=== PATIENT | male | born 1975 | race African-American/Black ===

== ENCOUNTER 2016-11-24 21:50 | Emergency (ER) | payer SELFPAY ==
[~2016-11-24] VITALS: Ht 182.9 cm; Wt 130.0 kg
[~2016-11-24 21:50] MED LIST: CYCL-36 PO; DICL50 PO; IBUP800T23 PO; METF500 PO; PRED20 PO
[2016-11-24 21:54] VITALS: BP 118/75; PULSE 74; RESP 15; TEMP 98.1; O2SAT 94
[2016-11-25 01:35] VITALS: BP 131/72; PULSE 66; RESP 18; O2SAT 95
[2016-11-25] MEDS ORDERED: METF500T PO ×2 (01:38→04:32)
[2016-11-25] MEDS ORDERED: SODIUM CHLORIDE 0.9% FLUSH 5 ML FLUSH IVF PRN (02:00)
[2016-11-25] MEDS ORDERED: SODIUM CHLOR 0.9% 1000 ML INJ 1,000 ML IV ONE (02:00)
[2016-11-25] MEDS ORDERED: INSULIN HUMAN REGULAR 1,000 UNITS/10 ML VIAL SQ ONE (02:00)
[2016-11-25 02:19] LABS: BLOOD, URINE NEG (NEG); GLUCOSE,URINE 1000 mg/dL (NEG); KETONE, URINE NEG (NEG); NITRITE,URINE NEG (NEG); PH, URINE 5.5 (5.0-8.5); SQUAMOUS EPITHELIAL CELL URINE <1 /hpf (0-5); URINE COLOR YELLOW (YELLW/STRAW)
[2016-11-25 02:21] LABS: COMMENT (UR) CULT NOT INDICATED; CULTURE IF INDICATED CULT NOT INDICATED
[2016-11-25 02:22] LABS: AUTOMATED NEUTROPHIL # 5.8 TH/MM3 (1.8-7.7); BASOPHIL # 0.2 TH/MM3 (0-0.2); BASOPHIL % 1.5 % (0.0-2.0); EOSINOPHIL # 0.3 TH/MM3 (0-0.4); EOSINOPHIL % 2.9 % (0.0-4.0); HEMATOCRIT 33.1 % (39.0-51.0); HEMO FLAGS DIFF FINAL; LYMPH % 37.1 % (9.0-44.0); MEAN CELL VOLUME 75.4 FL (80.0-100.0); MEAN CORPUSCULAR HEMOGLOBIN 25.5 PG (27.0-34.0); MEAN CORPUSCULAR HGB CONC 33.8 % (32.0-36.0); MONO % 5.3 % (0.0-8.0); NEUT % 53.2 % (16.0-70.0); PLATELET COUNT 355 TH/MM3 (150-450); RED BLOOD COUNT 4.39 MIL/MM3 (4.50-5.90); RED CELL DISTRIBUTION WIDTH 16.7 % (11.6-17.2); WHITE BLOOD COUNT 10.8 TH/MM3 (4.0-11.0)
--- NOTE | 2016-11-25 02:24 | RADRPT ---
EXAM DATE/TIME: 11/25/2016 02:20 [facility] COMPARISON: CHEST SINGLE AP, May 29, 2015, 8:33. INDICATIONS : Weakness. Dizzy. MEDICAL HISTORY : None. SURGICAL HISTORY : None. ENCOUNTER: Initial ACUITY: 1 day PAIN SCORE: 6/10 LOCATION: Bilateral chest FINDINGS: A single view of the chest demonstrates the lungs to be symmetrically aerated without evidence of mas s, infiltrate or effusion. The cardiomediastinal contours are unremarkable. Osseous structures are intact. CONCLUSION: No acute disease. No significant change has occurred. Joe Eckert MD on November 25, 2016 at 2:22 Board Certified Radiologist. This report was verified electronically.
[2016-11-25 02:46] VITALS: BP_SYST 135; BP_SYST 138; BP_SYST 154; BP_DIAS 80; BP_DIAS 83; BP_DIAS 90; RESP 14; RESP 18
[2016-11-25 02:48] LABS: ANION GAP 8 MEQ/L (5-15); BICARBONATE 28.2 MEQ/L (21.0-32.0); BLOOD UREA NITROGEN 11 MG/DL (7-18); CHLORIDE 103 MEQ/L (98-107); GLOMERULAR FILTRATION RATE 103 ML/MIN (>89); MAGNESIUM 1.9 MG/DL (1.5-2.5); POTASSIUM 3.8 MEQ/L (3.5-5.1); SODIUM (NA) 139 MEQ/L (136-145)
--- NOTE | 2016-11-25 02:48 | PD ---
HPI Chief Complaint: Dizziness Time Seen by Provider: 04:30 Travel History International Travel<30 days: No Contact w/Intl Traveler<30days: No Traveled to known affect area: No History of Present Illness HPI 41-year-old male presents to the emergency department by private transportation in the care of his family for evaluation of 20 minutes of dizziness this evening while he was driving to work. Patient did not have any sudden onset worst of her thunderclap headache, no change in mentation, no visual disturbance , no loss of vision or double vision no blurred vision, no nausea no vomiting, no change in his speech no upper or lower 70 numbness tingling or weakness. Patient did not feel well enough to go to work and presents now for further evaluation. Patient states she was diagnosed as a type II diabetic 2 years ago placed on metformin and ran out of his prescription a proxy 6 months ago due to insurance issues. Patient has done fairly well and has not been monitor blood sugars closely until this evening. Patient states that he's had no recent febrile illness or respiratory illness. No chest pain no palpitations no referred neck jaw back shoulder arm pain no abdominal pain no shortness of breath no sweats no vomiting and no nausea or vomiting. PFSH Past Medical History Narrative Medical Diabetes, heart murmur, appendectomy, cholecystectomy, no tobacco use, nursing notes reviewed Cardiovascular Problems: Yes ("ONE DR SAID I HAD A HEART MURMUR:) Diabetes: Yes Patient Takes Glucophage: No Diminished Hearing: No ?: Not Past Surgical History Appendectomy: Yes Cholecystectomy: Yes Social History Alcohol Use: No Tobacco Use: No Substance Use: No Allergies-Medications (Allergen,Severity, Reaction): Coded Allergies: Penicillin (Verified Allergy, Severe, Hives, 11/24/16) Reported Meds & Prescriptions Reported Meds & Active Scripts Active Metformin (Metformin HCl) 500 Mg Tab 500 Mg PO BIDPC With meals Reported Metformin (Metformin HCl) 500 Mg Tab 500 Mg PO BID With a meal Review of Systems Except as stated in HPI: all other systems reviewed are Neg General / Constitutional: No: Fever Eyes: No: Diploplia, Photophobia, Visual changes HENT: Positive: Vertigo, Lightheadedness, No: Headaches, Neck Pain Cardiovascular: No: Chest Pain or Discomfort, Palpitations, Diaphoresis, Syncope Respiratory: No: Shortness of Breath, Wheezing Gastrointestinal: No: Nausea, Vomiting, Abdominal Pain Genitourinary: No: Frequency, Dysuria, Flank Pain Musculoskeletal: No: Myalgias Skin: No Rash Neurologic: Positive: Weakness, Dizziness, No: Syncope, Focal Abnormalities, Coordination Problem, Ataxia, Headache, Change in Mentation, Slurred Speech, Paresthesia Psychiatric: No: Anxiety Endocrine: No: Heat Intolerance Hematologic/Lymphatic: No: Easy Bruising Physical Exam Narrative GENERAL: Well-developed well-nourished male in no acute distress no respiratory distress; GCS 15 SKIN: Warm and dry. HEAD: Atraumatic. Normocephalic. EYES: Pupils equal and round. No scleral icterus. No injection or drainage. ENT: No nasal bleeding or discharge. Mucous membranes pink and moist. NECK: Trachea midline. No JVD. Supple no meningismus no nuchal rigidity CARDIOVASCULAR: Regular rate and rhythm. RESPIRATORY: No accessory muscle use. Clear to auscultation. Breath sounds equal bilaterally. GASTROINTESTINAL: Abdomen soft, non-tender, nondistended. Hepatic and splenic margins not palpable. MUSCULOSKELETAL: Extremities without clubbing, cyanosis, or edema. No obvious deformities. NEUROLOGICAL: Awake and alert. No obvious cranial nerve deficits. Motor grossly within normal limits. Five out of 5 muscle strength in the arms and legs. No pronator drift, deep tendon reflexes 2+ and symmetric bilateral upper extremities and lower extremities sensory exam intact. Normal speech. PSYCHIATRIC: Appropriate mood and affect; insight and judgment normal. Data Data Last Documented VS Vital Signs Date Time Temp Pulse Resp B/P Pulse Ox O2 Delivery O2 Flow Rate FiO2 11/25/16 05:31 73 14 117/74 98 11/25/16 03:10 Room Air 11/24/16 21:54 98.1 Orders Electrocardiogram (11/25/16 01:49) Basic Metabolic Panel (Bmp) (11/25/16 01:49) Complete Blood Count With Diff (11/25/16 01:49) Magnesium (Mg) (11/25/16 01:49) Troponin I (11/25/16 01:49) Urinalysis - C+S If Indicated (11/25/16 01:49) Chest, Single Ap (11/25/16 01:49) Ct Brain W/O Iv Contrast(Rout) (11/25/16 01:49) Ecg Monitoring (11/25/16 01:49) Iv Access Insert/Monitor (11/25/16 01:49) Oximetry (11/25/16 01:49) Sodium Chloride 0.9% Flush (Ns Flush) (11/25/16 02:00) Orthostatic Vital Signs (11/25/16 01:49) Sodium Chlor 0.9% 1000 Ml Inj (Ns 1000 M (11/25/16 02:00) Insulin Human Regular Inj (Novolin R Inj (11/25/16 02:00) Labs Laboratory Tests Test 11/25/16 11/25/16 01:45 02:06 White Blood Count 10.8 TH/MM3 Red Blood Count 4.39 MIL/MM3 Hemoglobin 11.2 GM/DL Hematocrit 33.1 % Mean Corpuscular Volume 75.4 FL Mean Corpuscular Hemoglobin 25.5 PG Mean Corpuscular Hemoglobin 33.8 % Concent Red Cell Distribution Width 16.7 % Platelet Count 355 TH/MM3 Mean Platelet Volume 8.8 FL Neutrophils (%) (Auto) 53.2 % Lymphocytes (%) (Auto) 37.1 % Monocytes (%) (Auto) 5.3 % Eosinophils (%) (Auto) 2.9 % Basophils (%) (Auto) 1.5 % Neutrophils # (Auto) 5.8 TH/MM3 Lymphocytes # (Auto) 4.0 TH/MM3 Monocytes # (Auto) 0.6 TH/MM3 Eosinophils # (Auto) 0.3 TH/MM3 Basophils # (Auto) 0.2 TH/MM3 CBC Comment DIFF FINAL Differential Comment Sodium Level 139 MEQ/L Potassium Level 3.8 MEQ/L Chloride Level 103 MEQ/L Carbon Dioxide Level 28.2 MEQ/L Anion Gap 8 MEQ/L Blood Urea Nitrogen 11 MG/DL Creatinine 0.97 MG/DL Estimat Glomerular Filtration 103 ML/MIN Rate Random Glucose 277 MG/DL Calcium Level 8.6 MG/DL Magnesium Level 1.9 MG/DL Troponin I LESS THAN 0.02 NG/ML Urine Color YELLOW Urine Turbidity CLEAR Urine pH 5.5 Urine Specific [place] 1.011 Urine Protein NEG mg/dL Urine Glucose (UA) 1000 mg/dL Urine Ketones NEG mg/dL Urine Occult Blood NEG Urine Nitrite NEG Urine Bilirubin NEG Urine Urobilinogen LESS THAN 2.0 MG/DL Urine Leukocyte Esterase NEG Urine WBC 2 /hpf Urine Squamous Epithelial <1 /hpf Cells Microscopic Urinalysis Comment CULT NOT INDICATED MDM Medical Decision Making Medical Screen Exam Complete: Yes Emergency Medical Condition: Yes Medical Record Reviewed: Yes Interpretation(s) EKG: Sinus rhythm rate [address] elevation or injury pattern or ectopy noted Urinalysis: Glucosuria otherwise values in normal range next line troponin I less than 0.02, not elevated Vital Signs Date Time Temp Pulse Resp B/P Pulse Ox O2 Delivery O2 Flow Rate FiO2 11/25/16 02:46 70 14 135/80 70 14 138/83 80 18 154/90 11/25/16 01:35 66 18 131/72 95 Room Air 11/24/16 21:54 98.1 74 15 118/75 94 Room Air Last Impressions Head CT 11/25/16148 Signed Impressions: Service Date/Time: November 02:58 - CONCLUSION: Normal examination for a patient of this age. No significant change has occurred. Joe Eckert MD Chest X-Ray 11/25/16148 Signed Impressions: Service Date/Time: November 02:20 - CONCLUSION: No acute disease. No significant change has occurred. Joe Eckert MD CBC & BMP Diagram 11/25/16 01:45 Differential Diagnosis Dizziness, vertigo, TIA, CVA, uncontrolled diabetes, hypertensive urgency, hypertensive crisis, ACS, myocardial infarction, electronic disturbance, dehydration, anemia Narrative Course Patient placed on director cardiac, IV access obtained, specimens collected and sent for resulting, patient identified to have hyperglycemia by random glucose and patient was administered 1 L normal saline along with subcutaneous insulin Patient show any evidence of insulin decreasing width measures performed and patient is stable for outpatient management. Patient states she has not been on his metformin for 6 months. Patient needs a refill of his metformin prescription Patient is stable for outpatient management and follow-up with his primary care provider or through the [facility] Diagnosis Primary Impression: Dizziness Additional Impressions: Hyperglycemia Medication refill DM (diabetes mellitus) Referrals: [facility] call for appointment Primary Care Physician call for appointment Patient Instructions: General Instructions Med/Other Pt SpecificInfo: Prescription(s) given Scripts Metformin 500 Mg [id number] Mg PO BIDPC #60 TAB Ref 0 With meals Prov:Melissa Nance MD 11/25/16 Disposition: DISCHARGE HOME Condition: Stable Melissa Nance MD Nov 25, 2016 02:48 Melissa Nance MD Nov 25, 2016 02:48
--- NOTE | 2016-11-25 03:09 | RADRPT ---
EXAM DATE/TIME: 11/25/2016 02:58 [facility] COMPARISON: No previous studies available for comparison. INDICATIONS : Dizziness with blurred vision. RADIATION DOSE: 42.67 CTDIvol (mGy) MEDICAL HISTORY : Diabetes mellitus type 2. SURGICAL HISTORY : Appendectomy. Cholecystectomy. ENCOUNTER: Initial ACUITY: 1 day PAIN SCALE: 0/10 LOCATION: cranial TECHNIQUE: Multiple contiguous axial images were obtained of the head. Using automated exposure control and adj ustment of the mA and/or kV according to patient size, radiation dose was kept as low as reasonably a chievable to obtain optimal diagnostic quality images. FINDINGS: CEREBRUM: The ventricles are normal for age. No evidence of midline shift, mass lesion, hemorrhage or acute in farction. No extra-axial fluid collections are seen. POSTERIOR FOSSA: The cerebellum and brainstem are intact. The 4th ventricle is midline. The cerebellopontine angle i s unremarkable. EXTRACRANIAL: The visualized portion of the orbits is intact. SKULL: The calvaria is intact. No evidence of skull fracture. CONCLUSION: Normal examination for a patient of this age. No significant change has occurred. Joe Eckert MD on November 25, 2016 at 3:06 Board Certified Radiologist. This report was verified electronically.
[2016-11-25 03:10] VITALS: BP 154/90; PULSE 67; RESP 14; O2SAT 98
[2016-11-25 05:31] VITALS: BP 117/74
--- NOTE | 2016-11-25 23:44 | EKG ---
Date Performed: 11/25/2016 Time Performed: 02:39:34 PTAGE: 41 years EKG: Sinus rhythm NORMAL ECG PREVIOUS TRACING : 05/29/2015 08.04 Compared to prior tracing no significant change DOCTOR: Juanito Lawrence Interpretating Date/Time 11/25/2016 23:43:21
== END 2016-11-25 05:40 | disposition home or self-care (01) ==
LOC: NEPC 21:50
DX: R42 Dizziness and giddiness (principal); E11.65 Type 2 diabetes mellitus with hyperglycemia; H53.8 Other visual disturbances
CPT/HCPCS: 70450; 71010; 80048; 81001; 83735; 84484; 85025; 93005; 96360; 96361; 99284; J1815; J7030

== ENCOUNTER 2016-12-26 11:00 | Emergency (ER) | payer SELFPAY ==
[~2016-12-26] VITALS: Ht 182.9 cm; Wt 131.5 kg
[~2016-12-26 11:00] MED LIST changes: -CYCL-36 PO; -DICL50 PO; -IBUP800T23 PO; -METF500 PO; +METF500T PO; -PRED20 PO
[2016-12-26 11:01] VITALS: BP 145/90; PULSE 81; RESP 17; TEMP 98.3; O2SAT 98
[2016-12-26 11:26] VITALS: TEMP 98.2
[2016-12-26] MEDS ORDERED: ZITHTAB PO (11:38)
--- NOTE | 2016-12-26 11:38 | PD ---
HPI Chief Complaint: Cold / Flu Symptoms Time Seen by Provider: 11:24 Travel History International Travel<30 days: No Contact w/Intl Traveler<30days: No Traveled to known affect area: No History of Present Illness HPI 41-year-old male with history of diabetes on metformin, here for evaluation of cough. The patient reports having a cough for a 1.5 weeks. Cough is productive of yellowish sputum. No hemoptysis. No chest pain or dyspnea. He has had intermittent fevers and chills. He also complains of sore throat as well as a frontal headache that occurs when he coughs. No headache at rest. No visual disturbances. No neurologic complaints. PFSH Past Medical History Cardiovascular Problems: Yes ("ONE DR SAID I HAD A HEART MURMUR:) Diabetes: Yes Patient Takes Glucophage: Yes Diminished Hearing: No Past Surgical History Appendectomy: Yes Cholecystectomy: Yes Social History Alcohol Use: No Tobacco Use: No Substance Use: No Allergies-Medications (Allergen,Severity, Reaction): Coded Allergies: Penicillin (Verified Allergy, Severe, Hives, 12/26/16) Reported Meds & Prescriptions Reported Meds & Active Scripts Active Reported Metformin (Metformin HCl) 500 Mg Tab 500 Mg PO BID With a meal Review of Systems Except as stated in HPI: all other systems reviewed are Neg Physical Exam Narrative GENERAL: Well-developed, well-nourished, comfortable, no acute distress. SKIN: Focused skin assessment warm/dry. No rash. HEAD: Atraumatic. Normocephalic. EYES: Pupils equal and round. No scleral icterus. No injection or drainage. ENT: No nasal bleeding or discharge. Mucous membranes pink and moist. Normal pharynx. No drooling or stridor. NECK: Trachea midline. No JVD. No nuchal rigidity. CARDIOVASCULAR: Regular rate and rhythm. No murmur appreciated. RESPIRATORY: No accessory muscle use. Clear to auscultation. Breath sounds equal bilaterally. GASTROINTESTINAL: Abdomen soft, non-tender, nondistended. MUSCULOSKELETAL: No obvious deformities. No clubbing. No cyanosis. No edema. NEUROLOGICAL: Awake and alert. No obvious cranial nerve deficits. Motor grossly within normal limits. Normal speech. PSYCHIATRIC: Appropriate mood and affect; insight and judgment normal. Data Data Last Documented VS Vital Signs Date Time Temp Pulse Resp B/P Pulse Ox O2 Delivery O2 Flow Rate FiO2 12/26/16 11:27 18 97 Room Air 12/26/16 11:26 98.2 12/26/16 11:01 81 145/90 [facility] Medical Decision Making Medical Screen Exam Complete: Yes Emergency Medical Condition: Yes Differential Diagnosis Bronchitis, pneumonia, URI, viral illness Narrative Course Vital signs show heart rate 81, blood pressure 145/90, pulse ox 98% on room air , oral temp of 98.3F. Patient is overall very well-appearing. His lung sounds are clear. He reports cough productive of yellowish sputum that has been going on for last 1.5 weeks. His pharynx is normal. Airways patent. No nuchal rigidity on exam. I believe he is suffering from bronchitis. Plan is to discharge him home with a prescription for a Z-Bib. PMD follow-up this week. He was informed on when to return to the emergency department. He verbalizes understanding and agreement with plan. Diagnosis Primary Impression: Bronchitis Referrals: Primary Care Physician 3 days Additional Instructions: Follow-up with a primary care physician this week. Stay hydrated with plenty of fluids. Take antibiotic as prescribed. Return to the emergency department for worsening symptoms or any other concerns. Scripts Azithromycin (Zithromax Z-Bib)250 Mg Gycr325 Mg PO DIRECTED #1 DSPK Ref 0 500 MG (2 tabs) day 1, then 1 tab days 2-5. Prov:Lisandro Torrez MD 12/26/16 Disposition: 01 DISCHARGE HOME Condition: Stable Lisandro Torrez MD Dec 26, 2016 11:38
== END 2016-12-26 12:44 | disposition home or self-care (01) ==
LOC: NEPA 11:00
DX: J40 Bronchitis, not specified as acute or chronic (principal)
CPT/HCPCS: 99283

== ENCOUNTER 2017-03-28 07:25 | Emergency (ER) | payer SELFPAY ==
[~2017-03-28] VITALS: Ht 182.9 cm; Wt 130.0 kg
[~2017-03-28 07:25] MED LIST changes: +ZITHTAB PO
[2017-03-28 07:26] VITALS: BP 121/77; PULSE 102; RESP 15; TEMP 99.5; O2SAT 98
[2017-03-28] MEDS ORDERED: SODIUM CHLOR 0.9% 1000 ML INJ 1,000 ML IV SCH (07:43)
[2017-03-28] MEDS ORDERED: SODIUM CHLORIDE 0.9% FLUSH 10 ML FLUSH IV FLUSH PRN (07:45)
[2017-03-28] MEDS ORDERED: ACETAMINOPHEN 325 MG TAB PO ONE (07:45)
[2017-03-28] MEDS ORDERED: ONDANSETRON HCL 4 MG/2 ML VIAL IVP ONE (07:45)
--- NOTE | 2017-03-28 07:49 | PD ---
HPI Chief Complaint: GI Complaint Time Seen by Provider: 07:36 Travel History International Travel<30 days: No Contact w/Intl Traveler<30days: No Traveled to known affect area: No History of Present Illness HPI The patient is a 41-year-old [place] male who presents emergency department for 2 days of cough and cold symptoms. The patient states he has facial/sinus congestion, postnasal drip, sore throat, dry nonproductive cough, nausea, diarrhea, and intermittent abdominal cramping. The patient does have a history of type 2 diabetes, takes metformin on a daily basis for approximately one year, cannot recall the last time he had his kidney function monitored. He does complain of postnasal drip and a dry nonproductive cough, but denies any chest pain or shortness of breath. He does know some mild nausea, but denies any vomiting. He does note a few episodes of diarrhea which were loose, watery , but improved with Imodium. 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 He notes subjective fevers with intermittent chills and sweats. Symptoms are moderate, possibly exacerbated by an underlying illness, and there are no current alleviating factors. PFSH Past Medical History Cardiovascular Problems: Yes ("ONE DR SAID I HAD A HEART MURMUR:) Diabetes: Yes Patient Takes Glucophage: No Diminished Hearing: No Past Surgical History Appendectomy: Yes Cholecystectomy: Yes Social History Alcohol Use: No Tobacco Use: No Substance Use: No Allergies-Medications (Allergen,Severity, Reaction): Coded Allergies: Penicillin (Verified Allergy, Severe, Hives, 12/26/16) Reported Meds & Prescriptions Reported Meds & Active Scripts Active Reported Metformin (Metformin HCl) 500 Mg Tab 500 Mg PO BID With a meal Review of Systems Except as stated in HPI: all other systems reviewed are Neg General / Constitutional: Positive: Fever, Chills HENT: Positive: Sore Throat, Congestion Cardiovascular: No: Chest Pain or Discomfort Respiratory: Positive: Cough, No: Shortness of Breath Gastrointestinal: Positive: Nausea, Diarrhea, Abdominal Pain (cramping), No: Vomiting Genitourinary: No: Dysuria Musculoskeletal: Positive: Myalgias Physical Exam Narrative GENERAL: Awake, alert, pleasant 41-year-old male who appears his stated age and is in no acute respiratory distress. SKIN: Focused skin assessment warm/dry. HEAD: Atraumatic. Normocephalic. EYES: Pupils equal and round. No scleral icterus. No injection or drainage. ENT: No nasal bleeding or discharge. Cobblestoning noted in posterior oropharynx, no exudate noted. NECK: Trachea midline. No JVD. CARDIOVASCULAR: Regular, tachycardic with a heart rate of 100. RESPIRATORY: No accessory muscle use. Clear to auscultation. Breath sounds equal bilaterally. GASTROINTESTINAL: Abdomen soft, non-tender, nondistended. No rebound tenderness. MUSCULOSKELETAL: No obvious deformities. No clubbing. No cyanosis. No edema. NEUROLOGICAL: Awake and alert. No obvious cranial nerve deficits. Motor grossly within normal limits. Normal speech. PSYCHIATRIC: Appropriate mood and affect; insight and judgment normal. Data Data Last Documented VS Vital Signs Date Time Temp Pulse Resp B/P Pulse Ox O2 Delivery O2 Flow Rate FiO2 03/28/17 08:45 98 03/28/17 07:26 99.5 102 15 121/77 Orders Complete Blood Count With Diff (03/28/17 07:43) Comprehensive Metabolic Panel (03/28/17 07:43) Lipase (03/28/17 07:43) Iv Access Insert/Monitor (03/28/17 07:43) Ecg Monitoring (03/28/17 07:43) Oximetry (03/28/17 07:43) Ondansetron Inj (Zofran Inj) (03/28/17 07:45) Sodium Chlor 0.9% 1000 Ml Inj (Ns 1000 M (03/28/17 07:43) Sodium Chloride 0.9% Flush (Ns Flush) (03/28/17 07:45) Acetaminophen (Tylenol) (03/28/17 07:45) Labs Laboratory Tests Test 03/28/17 07:50 White Blood Count 14.9 TH/MM3 Red Blood Count 4.32 MIL/MM3 Hemoglobin 10.5 GM/DL Hematocrit 32.1 % Mean Corpuscular Volume 74.3 FL Mean Corpuscular Hemoglobin 24.4 PG Mean Corpuscular Hemoglobin 32.8 % Concent Red Cell Distribution Width 17.3 % Platelet Count 340 TH/MM3 Mean Platelet Volume 8.4 FL Neutrophils (%) (Auto) 70.3 % Lymphocytes (%) (Auto) 17.7 % Monocytes (%) (Auto) 8.1 % Eosinophils (%) (Auto) 3.1 % Basophils (%) (Auto) 0.8 % Neutrophils # (Auto) 10.5 TH/MM3 Lymphocytes # (Auto) 2.6 TH/MM3 Monocytes # (Auto) 1.2 TH/MM3 Eosinophils # (Auto) 0.5 TH/MM3 Basophils # (Auto) 0.1 TH/MM3 CBC Comment AUTO DIFF Differential Total Cells 100 Counted Neutrophils % (Manual) 72 % Lymphocytes % 16 % Monocytes % 9 % Eosinophils % 3 % Neutrophils # (Manual) 10.7 TH/MM3 Nucleated Red Blood Cells 1 /100 WBC Differential Comment FINAL DIFF MANUAL Platelet Estimate NORMAL Platelet Morphology Comment NORMAL Target Cells 3+ Ovalocytes 1+ Sodium Level 139 MEQ/L Potassium Level 3.8 MEQ/L Chloride Level 107 MEQ/L Carbon Dioxide Level 22.9 MEQ/L Anion Gap 9 MEQ/L Blood Urea Nitrogen 10 MG/DL Creatinine 1.09 MG/DL Estimat Glomerular Filtration 90 ML/MIN Rate Random Glucose 127 MG/DL Calcium Level 8.4 MG/DL Total Bilirubin 1.7 MG/DL Aspartate Amino Transf 27 U/L (AST/SGOT) Alanine Aminotransferase 20 U/L (ALT/SGPT) Alkaline Phosphatase 56 U/L Total Protein 7.7 GM/DL Albumin 3.6 GM/DL Lipase 125 U/L MDM Medical Decision Making Medical Screen Exam Complete: Yes Emergency Medical Condition: Yes Medical Record Reviewed: Yes Interpretation(s) Laboratory Tests Test 03/28/17 07:50 White Blood Count 14.9 TH/MM3 Red Blood Count 4.32 MIL/MM3 Hemoglobin 10.5 GM/DL Hematocrit 32.1 % Mean Corpuscular Volume 74.3 FL Mean Corpuscular Hemoglobin 24.4 PG Mean Corpuscular Hemoglobin 32.8 % Concent Red Cell Distribution Width 17.3 % Platelet Count 340 TH/MM3 Mean Platelet Volume 8.4 FL Neutrophils (%) (Auto) 70.3 % Lymphocytes (%) (Auto) 17.7 % Monocytes (%) (Auto) 8.1 % Eosinophils (%) (Auto) 3.1 % Basophils (%) (Auto) 0.8 % Neutrophils # (Auto) 10.5 TH/MM3 Lymphocytes # (Auto) 2.6 TH/MM3 Monocytes # (Auto) 1.2 TH/MM3 Eosinophils # (Auto) 0.5 TH/MM3 Basophils # (Auto) 0.1 TH/MM3 CBC Comment AUTO DIFF Differential Total Cells 100 Counted Neutrophils % (Manual) 72 % Lymphocytes % 16 % Monocytes % 9 % Eosinophils % 3 % Neutrophils # (Manual) 10.7 TH/MM3 Nucleated Red Blood Cells 1 /100 WBC Differential Comment FINAL DIFF MANUAL Platelet Estimate NORMAL Platelet Morphology Comment NORMAL Target Cells 3+ Ovalocytes 1+ Sodium Level 139 MEQ/L Potassium Level 3.8 MEQ/L Chloride Level 107 MEQ/L Carbon Dioxide Level 22.9 MEQ/L Anion Gap 9 MEQ/L Blood Urea Nitrogen 10 MG/DL Creatinine 1.09 MG/DL Estimat Glomerular Filtration 90 ML/MIN Rate Random Glucose 127 MG/DL Calcium Level 8.4 MG/DL Total Bilirubin 1.7 MG/DL Aspartate Amino Transf 27 U/L (AST/SGOT) Alanine Aminotransferase 20 U/L (ALT/SGPT) Alkaline Phosphatase 56 U/L Total Protein 7.7 GM/DL Albumin 3.6 GM/DL Lipase 125 U/L Differential Diagnosis Differential diagnosis includes viral syndrome, URI, influenza, gastroenteritis , dehydration, acute kidney injury, electrolyte abnormality, sinusitis, pharyngitis, pneumonia. Narrative Course IV was established, labs are drawn and sent, and the patient was placed on cardiac telemetry monitoring and continuous pulse oximetry monitoring. The patient was administered 1 L of IV fluids and Zofran 4 mg intravenously. The patient appears to have viral syndrome/URI, is advised symptomatic treatment with [id number] cough and cold medications as needed, follow-up with his primary physician. Return if symptoms worsen or progress. The patient's white count is mildly elevated with an elevation of monocytes, most likely viral in origin. The patient will be discharged home on Zofran, will be provided a copy of his labs at discharge. He is advised to follow-up with a primary physician. Diagnosis Primary Impression: Viral syndrome Patient Instructions: General Instructions Additional Instructions: Please provide a patient a copy of his labs at discharge. Work excuse for 3 days. [id number] cough and cold medicines as needed. Follow-up with your primary physician. Return if symptoms worsen or progress. Med/Other Pt SpecificInfo: Prescription(s) given Scripts Ondansetron Odt (Zofran Odt)4 Mg Tab4 Mg SL Q6HR PRN (Nausea/Vomiting) #7 TAB Ref 0 Prov:Dillan Ford MD 03/28/17 Disposition: 01 DISCHARGE HOME Condition: Stable Dillan Ford MD Mar 28, 2017 07:49
[2017-03-28 08:08] LABS: AUTOMATED NEUTROPHIL # 10.5 TH/MM3 (1.8-7.7); BASOPHIL # 0.1 TH/MM3 (0-0.2); BASOPHIL % 0.8 % (0.0-2.0); EOSINOPHIL # 0.5 TH/MM3 (0-0.4); EOSINOPHIL % 3.1 % (0.0-4.0); HEMATOCRIT 32.1 % (39.0-51.0); LYMPH % 17.7 % (9.0-44.0); LYMPHOCYTE # 2.6 TH/MM3 (1.0-4.8); MEAN CELL VOLUME 74.3 FL (80.0-100.0); MEAN CORPUSCULAR HEMOGLOBIN 24.4 PG (27.0-34.0); MEAN CORPUSCULAR HGB CONC 32.8 % (32.0-36.0); MONO % 8.1 % (0.0-8.0); NEUT % 70.3 % (16.0-70.0); PLATELET COUNT 340 TH/MM3 (150-450); RED BLOOD COUNT 4.32 MIL/MM3 (4.50-5.90); RED CELL DISTRIBUTION WIDTH 17.3 % (11.6-17.2); WHITE BLOOD COUNT 14.9 TH/MM3 (4.0-11.0)
[2017-03-28 08:09] LABS: HEMO FLAGS AUTO DIFF
[2017-03-28 08:30] LABS: ALKALINE PHOSPHATASE 56 U/L (45-117); TOTAL BILIRUBIN ADULT 1.7 MG/DL (0.2-1.0)
[2017-03-28 08:34] LABS: ALT (GPT) 20 U/L (12-78); ANION GAP 9 MEQ/L (5-15); AST (GOT) 27 U/L (15-37); BICARBONATE 22.9 MEQ/L (21.0-32.0); BLOOD UREA NITROGEN 10 MG/DL (7-18); CHLORIDE 107 MEQ/L (98-107); GLOMERULAR FILTRATION RATE 90 ML/MIN (>89); POTASSIUM 3.8 MEQ/L (3.5-5.1); SODIUM (NA) 139 MEQ/L (136-145)
[2017-03-28 08:45] VITALS: O2SAT 98
[2017-03-28 08:48] LABS: CORRECTED NUCLEATED RBC 1 /100 WBC (0-0); EOSINOPHILS 3 % (0-4); NEUTROPHIL # MANUAL DIFF 10.7 TH/MM3 (1.8-7.7); POLYS (SEG NEUTROPHILS) 72 % (16-70); WBC DIFF SAMPLE 100
[2017-03-28 08:49] LABS: OVALOCYTES 1+ (NORMAL); PLATELET ESTIMATE SMEAR NORMAL (NORMAL); PLATELET MORPHOLOGY NORMAL (NORMAL); SCAN/DIFF FINAL DIFF MANUAL; TARGET CELLS 3+ (NORMAL)
[2017-03-28] MEDS ORDERED: ZOFR4TAB3 SL (09:20)
== END 2017-03-28 09:30 | disposition home or self-care (01) ==
LOC: NEPE 07:25
DX: B34.9 Viral infection, unspecified (principal); R05 Cough; R09.81 Nasal congestion; R09.82 Postnasal drip; R07.0 Pain in throat; R11.0 Nausea; R19.7 Diarrhea, unspecified; R10.9 Unspecified abdominal pain; D72.829 Elevated white blood cell count, unspecified; E11.9 Type 2 diabetes mellitus without complications; Z79.84 Long term (current) use of oral hypoglycemic drugs; Z86.79 Personal history of other diseases of the circulatory system
CPT/HCPCS: 80053; 83690; 85007; 85027; 96374; 96375; 99284; J2405; J7030

== ENCOUNTER 2017-04-06 21:56 | Observation (INO) | payer SELFPAY ==
[~2017-04-06] VITALS: Ht 182.9 cm; Wt 130.0 kg
[~2017-04-06 21:56] MED LIST changes: -ZITHTAB PO; +ZOFR4TAB3 SL
[2017-04-06 21:58] VITALS: BP 110/63; PULSE 83; RESP 16; TEMP 99.1; O2SAT 99
[2017-04-06 22:14] VITALS: BP_SYST 118; BP_SYST 119; BP_DIAS 71; BP_DIAS 77
[2017-04-06] MEDS ORDERED: SODIUM CHLORID 0.9% 500 ML INJ 500 ML IV ONE (22:15)
[2017-04-06] MEDS ORDERED: SODIUM CHLORIDE 0.9% FLUSH 10 ML FLUSH IVF PRN (22:15)
--- NOTE | 2017-04-06 22:24 | PD ---
HPI Chief Complaint: Chest Pain Time Seen by Provider: 22:11 Travel History International Travel<30 days: No Contact w/Intl Traveler<30days: No History of Present Illness HPI Patient is a 42-year-old male presenting to emergency for evaluation of chest pain. Chest pain started approximately 30 minutes prior to arrival, it is nonradiating. Patient states he was driving to work when the chest pain started. Patient also reports a frontal headache, dizziness. He denies any nausea, vomiting, diaphoresis, shortness of breath. He states that he was treated for sinus infection last week, he continues to have an occasional cough. Patient was given sublingual nitroglycerin 1 dose, his pain went from an 8 out of 10-6 out of 10. He refuses second nitroglycerin. EMS report. Patient has no history of heart disease, he is a type II diabetic on metformin. He has no primary care provider at this time. He does not smoke or drink, he denies any illicit drug use. PFSH Past Medical History Diabetes: Yes Patient Takes Glucophage: Yes Diminished Hearing: No Past Surgical History Appendectomy: Yes Cholecystectomy: Yes Social History Alcohol Use: No Tobacco Use: No Substance Use: No Allergies-Medications (Allergen,Severity, Reaction): Coded Allergies: Penicillin (Verified Allergy, Severe, Hives, 04/06/17) Reported Meds & Prescriptions Reported Meds & Active Scripts Active Reported Metformin (Metformin HCl) 500 Mg Tab 500 Mg PO BID With a meal Review of Systems Except as stated in HPI: all other systems reviewed are Neg General / Constitutional: No: Fever Eyes: No: Blurred Vision HENT: Positive: Headaches Cardiovascular: Positive: Chest Pain or Discomfort Respiratory: Positive: Cough, No: Shortness of Breath Gastrointestinal: No: Nausea, Vomiting, Abdominal Pain Musculoskeletal: No: Myalgias Neurologic: Positive: Dizziness Physical Exam Narrative GENERAL: Overweight, well-developed, alert gentleman. Appears uncomfortable, in no acute distress. SKIN: Warm and dry. HEAD: Atraumatic. Normocephalic. EYES: Pupils equal and round. No scleral icterus. No injection or drainage. Tenderness to palpation over ethmoid and frontal sinuses. ENT: No nasal bleeding or discharge. Mucous membranes pink and moist. NECK: Trachea midline. No JVD. CARDIOVASCULAR: Regular rate and rhythm. RESPIRATORY: No accessory muscle use. Clear to auscultation. Breath sounds equal bilaterally. GASTROINTESTINAL: Abdomen soft, non-tender, nondistended. Hepatic and splenic margins not palpable. MUSCULOSKELETAL: Extremities without clubbing, cyanosis, or edema. No obvious deformities. NEUROLOGICAL: Awake and alert. No obvious cranial nerve deficits. Motor grossly within normal limits. Five out of 5 muscle strength in the arms and legs. Normal speech. PSYCHIATRIC: Appropriate mood and affect; insight and judgment normal. Data Data Last Documented VS Vital Signs Date Time Temp Pulse Resp B/P Pulse Ox O2 Delivery O2 Flow Rate FiO2 04/06/17 22:14 119/77 118/71 04/06/17 22:14 98 Nasal Cannula 2 04/06/17 21:58 99.1 83 16 Orders Electrocardiogram (04/06/17 22:05) Ckmb (Isoenzyme) Profile (04/06/17 22:05) Complete Blood Count With Diff (04/06/17 22:05) Comprehensive Metabolic Panel (04/06/17 22:05) Magnesium (Mg) (04/06/17 22:05) Prothrombin Time / Inr (Pt) (04/06/17 22:05) Act Partial Throm Time (Ptt) (04/06/17 22:05) Troponin I (04/06/17 22:05) Chest, Single Ap (04/06/17 22:05) Ecg Monitoring (04/06/17 22:05) Bilateral Bp Monitoring (04/06/17 22:05) Iv Access Insert/Monitor (04/06/17 22:05) Oximetry (04/06/17 22:05) Oxygen Administration (04/06/17 22:05) Sodium Chloride 0.9% Flush (Ns Flush) (04/06/17 22:15) Sodium Chlorid 0.9% 500 Ml Inj (Ns 500 M (04/06/17 22:15) CKMB (04/06/17 22:23) CKMB% (04/06/17 22:23) Admit Order (Ed Use Only) (04/07/17 00:24) Acetaminophen (Tylenol) (04/07/17 00:30) Labs Laboratory Tests Test 04/06/17 22:23 White Blood Count 8.4 TH/MM3 Red Blood Count 4.07 MIL/MM3 Hemoglobin 10.2 GM/DL Hematocrit 30.5 % Mean Corpuscular Volume 74.8 FL Mean Corpuscular Hemoglobin 25.1 PG Mean Corpuscular Hemoglobin 33.6 % Concent Red Cell Distribution Width 17.8 % Platelet Count 390 TH/MM3 Mean Platelet Volume 8.4 FL Neutrophils (%) (Auto) 50.0 % Lymphocytes (%) (Auto) 42.1 % Monocytes (%) (Auto) 4.6 % Eosinophils (%) (Auto) 2.2 % Basophils (%) (Auto) 1.1 % Neutrophils # (Auto) 4.2 TH/MM3 Lymphocytes # (Auto) 3.5 TH/MM3 Monocytes # (Auto) 0.4 TH/MM3 Eosinophils # (Auto) 0.2 TH/MM3 Basophils # (Auto) 0.1 TH/MM3 CBC Comment AUTO DIFF Differential Total Cells 100 Counted Neutrophils % (Manual) 61 % Lymphocytes % 32 % Monocytes % 6 % Eosinophils % 1 % Neutrophils # (Manual) 5.1 TH/MM3 Nucleated Red Blood Cells 2 /100 WBC Differential Comment FINAL DIFF MANUAL Platelet Estimate NORMAL Platelet Morphology Comment NORMAL Target Cells 3+ Acanthocytes OCC Prothrombin Time 10.2 SEC Prothromb Time International 0.9 RATIO Ratio Activated Partial 24.4 SEC Thromboplast Time Sodium Level 139 MEQ/L Potassium Level 3.9 MEQ/L Chloride Level 107 MEQ/L Carbon Dioxide Level 23.8 MEQ/L Anion Gap 8 MEQ/L Blood Urea Nitrogen 7 MG/DL Creatinine 0.83 MG/DL Estimat Glomerular Filtration 123 ML/MIN Rate Random Glucose 185 MG/DL Calcium Level 8.5 MG/DL Magnesium Level 1.8 MG/DL Total Bilirubin 1.2 MG/DL Aspartate Amino Transf 27 U/L (AST/SGOT) Alanine Aminotransferase 24 U/L (ALT/SGPT) Alkaline Phosphatase 59 U/L Total Creatine Kinase 132 U/L Creatine Kinase MB 0.8 NG/ML Troponin I LESS THAN 0.02 NG/ML Total Protein 7.8 GM/DL Albumin 3.5 GM/DL MDM Medical Decision Making Medical Screen Exam Complete: Yes Emergency Medical Condition: Yes Interpretation(s) Vital Signs Date Time Temp Pulse Resp B/P Pulse Ox O2 Delivery O2 Flow Rate FiO2 04/06/17 21:58 99.1 83 16 110/63 99 Room Air Differential Diagnosis ACS versus pleurisy versus pneumonia versus arrhythmia versus electrolyte abnormality versus PE versus other Narrative Course Patient is a 42-year-old male with a past medical history significant for type 2 diabetes, no routine primary care, presenting with chest pain that started 30 minutes prior to arrival while driving. VSS, labs and imaging ordered and pending. Patient placed on telemetry monitoring and continuous pulse oximetry. Chest x-ray shows no acute disease CBC is stable when compared to prior, white blood cell count has improved since his evaluation last week. Chemistry, cardiac enzymes, coags are pending. Care of patient transferred to my attending physician who will determine patient's disposition. Evelyn Shirley [facility] Apr 06, 2017 22:24
--- NOTE | 2017-04-06 22:36 | RADRPT ---
EXAM DATE/TIME: 04/06/2017 22:08 [facility] COMPARISON: CHEST SINGLE AP, November 25, 2016, 2:20. INDICATIONS : Chest pain, shortness of breath for 3 days MEDICAL HISTORY : None. SURGICAL HISTORY : None. ENCOUNTER: Initial ACUITY: 3 days PAIN SCORE: 9/10 LOCATION: Bilateral chest FINDINGS: A single view of the chest demonstrates the lungs to be symmetrically aerated without evidence of mas s, infiltrate or effusion. The cardiomediastinal contours are unremarkable. Osseous structures are intact. CONCLUSION: No acute disease. Gaston Woods MD FACR on April 06, 2017 at 22:34 Board Certified Radiologist. This report was verified electronically.
[2017-04-06 22:37] LABS: AUTOMATED NEUTROPHIL # 4.2 TH/MM3 (1.8-7.7); BASOPHIL # 0.1 TH/MM3 (0-0.2); BASOPHIL % 1.1 % (0.0-2.0); EOSINOPHIL # 0.2 TH/MM3 (0-0.4); EOSINOPHIL % 2.2 % (0.0-4.0); HEMATOCRIT 30.5 % (39.0-51.0); LYMPH % 42.1 % (9.0-44.0); LYMPHOCYTE # 3.5 TH/MM3 (1.0-4.8); MEAN CELL VOLUME 74.8 FL (80.0-100.0); MEAN CORPUSCULAR HEMOGLOBIN 25.1 PG (27.0-34.0); MEAN CORPUSCULAR HGB CONC 33.6 % (32.0-36.0); MONO % 4.6 % (0.0-8.0); PLATELET COUNT 390 TH/MM3 (150-450); RED BLOOD COUNT 4.07 MIL/MM3 (4.50-5.90); RED CELL DISTRIBUTION WIDTH 17.8 % (11.6-17.2); WHITE BLOOD COUNT 8.4 TH/MM3 (4.0-11.0)
[2017-04-06 22:38] LABS: HEMO FLAGS AUTO DIFF
[2017-04-06 22:48] LABS: APTT (PATIENT) 24.4 SEC (24.3-30.1); INTERNATIONAL NORMALIZED RATIO 0.9 RATIO; PROTHROMBIN TIME - PATIENT 10.2 SEC (9.8-11.6)
[2017-04-06 23:01] LABS: ALT (GPT) 24 U/L (12-78)
[2017-04-06 23:05] LABS: ALKALINE PHOSPHATASE 59 U/L (45-117); CREATINE KINASE 132 U/L (39-308); TOTAL BILIRUBIN ADULT 1.2 MG/DL (0.2-1.0)
[2017-04-06 23:07] LABS: ANION GAP 8 MEQ/L (5-15); AST (GOT) 27 U/L (15-37); BICARBONATE 23.8 MEQ/L (21.0-32.0); BLOOD UREA NITROGEN 7 MG/DL (7-18); CHLORIDE 107 MEQ/L (98-107); GLOMERULAR FILTRATION RATE 123 ML/MIN (>89); MAGNESIUM 1.8 MG/DL (1.5-2.5); POTASSIUM 3.9 MEQ/L (3.5-5.1); SODIUM (NA) 139 MEQ/L (136-145)
[2017-04-06 23:15] LABS: CORRECTED NUCLEATED RBC 2 /100 WBC (0-0); EOSINOPHILS 1 % (0-4); NEUTROPHIL # MANUAL DIFF 5.1 TH/MM3 (1.8-7.7); POLYS (SEG NEUTROPHILS) 61 % (16-70); SCAN/DIFF FINAL DIFF MANUAL; TARGET CELLS 3+ (NORMAL); WBC DIFF SAMPLE 100
[2017-04-06 23:16] LABS: ACANTHOCYTES OCC (NORMAL); PLATELET ESTIMATE SMEAR NORMAL (NORMAL); PLATELET MORPHOLOGY NORMAL (NORMAL)
[2017-04-06 23:17] LABS: CKMB 0.8 NG/ML (0.5-3.6)
[2017-04-07] VITALS (7 sets, daily range): BP systolic 117–167; BP diastolic 64–84; PULSE 56–77; RESP 14–18; TEMP 97.7–98.3; O2SAT 93–99
[2017-04-07] MEDS ORDERED: ACETAMINOPHEN 500 MG CPLT PO ONE (00:30)
[2017-04-07] MEDS ORDERED: SODIUM CHLORIDE 0.9% FLUSH 10 ML FLUSH IV FLUSH PRN (01:15)
[2017-04-07] MEDS: SODIUM CHLORIDE 0.9% FLUSH 10 ML FLUSH IV FLUSH SCH ×2 (02:32→09:36)
--- NOTE | 2017-04-07 04:36 | PD ---
Data Data Last Documented VS Vital Signs Date Time Temp Pulse Resp B/P Pulse Ox O2 Delivery O2 Flow Rate FiO2 04/06/17 22:14 119/77 118/71 04/06/17 22:14 98 Nasal Cannula 2 04/06/17 21:58 99.1 83 16 Orders Electrocardiogram (04/06/17 22:05) Ckmb (Isoenzyme) Profile (04/06/17 22:05) Complete Blood Count With Diff (04/06/17 22:05) Comprehensive Metabolic Panel (04/06/17 22:05) Magnesium (Mg) (04/06/17 22:05) Prothrombin Time / Inr (Pt) (04/06/17 22:05) Act Partial Throm Time (Ptt) (04/06/17 22:05) Troponin I (04/06/17 22:05) Chest, Single Ap (04/06/17 22:05) Ecg Monitoring (04/06/17 22:05) Bilateral Bp Monitoring (04/06/17 22:05) Iv Access Insert/Monitor (04/06/17 22:05) Oximetry (04/06/17 22:05) Oxygen Administration (04/06/17 22:05) Sodium Chloride 0.9% Flush (Ns Flush) (04/06/17 22:15) Sodium Chlorid 0.9% 500 Ml Inj (Ns 500 M (04/06/17 22:15) CKMB (04/06/17 22:23) CKMB% (04/06/17 22:23) Admit Order (Ed Use Only) (04/07/17 00:24) Acetaminophen (Tylenol) (04/07/17 00:30) Labs Laboratory Tests Test 04/06/17 22:23 White Blood Count 8.4 TH/MM3 Red Blood Count 4.07 MIL/MM3 Hemoglobin 10.2 GM/DL Hematocrit 30.5 % Mean Corpuscular Volume 74.8 FL Mean Corpuscular Hemoglobin 25.1 PG Mean Corpuscular Hemoglobin 33.6 % Concent Red Cell Distribution Width 17.8 % Platelet Count 390 TH/MM3 Mean Platelet Volume 8.4 FL Neutrophils (%) (Auto) 50.0 % Lymphocytes (%) (Auto) 42.1 % Monocytes (%) (Auto) 4.6 % Eosinophils (%) (Auto) 2.2 % Basophils (%) (Auto) 1.1 % Neutrophils # (Auto) 4.2 TH/MM3 Lymphocytes # (Auto) 3.5 TH/MM3 Monocytes # (Auto) 0.4 TH/MM3 Eosinophils # (Auto) 0.2 TH/MM3 Basophils # (Auto) 0.1 TH/MM3 CBC Comment AUTO DIFF Differential Total Cells 100 Counted Neutrophils % (Manual) 61 % Lymphocytes % 32 % Monocytes % 6 % Eosinophils % 1 % Neutrophils # (Manual) 5.1 TH/MM3 Nucleated Red Blood Cells 2 /100 WBC Differential Comment FINAL DIFF MANUAL Platelet Estimate NORMAL Platelet Morphology Comment NORMAL Target Cells 3+ Acanthocytes OCC Prothrombin Time 10.2 SEC Prothromb Time International 0.9 RATIO Ratio Activated Partial 24.4 SEC Thromboplast Time Sodium Level 139 MEQ/L Potassium Level 3.9 MEQ/L Chloride Level 107 MEQ/L Carbon Dioxide Level 23.8 MEQ/L Anion Gap 8 MEQ/L Blood Urea Nitrogen 7 MG/DL Creatinine 0.83 MG/DL Estimat Glomerular Filtration 123 ML/MIN Rate Random Glucose 185 MG/DL Calcium Level 8.5 MG/DL Magnesium Level 1.8 MG/DL Total Bilirubin 1.2 MG/DL Aspartate Amino Transf 27 U/L (AST/SGOT) Alanine Aminotransferase 24 U/L (ALT/SGPT) Alkaline Phosphatase 59 U/L Total Creatine Kinase 132 U/L Creatine Kinase MB 0.8 NG/ML Troponin I LESS THAN 0.02 NG/ML Total Protein 7.8 GM/DL Albumin 3.5 GM/DL MDM Supervised Visit with EUGENIA: Yes Narrative Course The history, exam, and medical decision-making in the associated midlevel provider note were completed with my assistance. I reviewed and agree with the findings presented. I attest that I had a [id number] encounter with the patient on the same day, and personally performed and documented my assessment and findings in the medical record. *My assessment and Findings: This is a 42-year-old male who presents to the emergency department with chest discomfort that started several hours ago. He has a history of diabetes. EKG is nonischemic and labs are reassuring. Patient will be observed in the chest pain center for serial cardiac enzymes given his risk factors for heart disease. Linnea Brown MD Apr 07, 2017 04:36
--- NOTE | 2017-04-07 11:39 | HHI.HP ---
[facility] Primary Care Physician Dr. Narda Bird Chief Complaint Chest pain, headache, blurred vision History of Present Illness 42-year-old male with history diabetes presents to emergency room for further evaluation of multiple complaints. Describes an episode of driving home yesterday afternoon and suddenly developing chest pain, blurred vision, any headache. Onset yesterday afternoon. Location substernal area. Characterized as a sharp quick pains lasting 1-2 seconds. No radiation. No associated symptoms of nausea, vomiting, diaphoresis, or shortness of breath. No known precipitating or relieving factors. Shortly after developing chest pain he experienced blurred vision bilaterally. Duration lasted 2-3 minutes. Denied nausea. He pulled over on the side of the road and called EMS. Reports by the time EMS arrived chest pain and blurred vision had subsided and he only experiences a mild frontal headache. Denies similar pain/episodes in the past. Review of Systems General: No fatigue,weakness, fever, chills, recent illness, or recent travel. HEENT: As stated above. Headache has subsided. No further vision changes other than initial episode. CV: As stated above. Denies any current chest pain or pressure. No palpitations, intermittent leg pain, or dizziness. RESP: No SOB, cough, wheeze, or history of asthma GI: No nausea, vomiting, bowel changes, diarrhea, constipation, or pain. No change in appetite, no unintentional weight gain or weight loss. : No dysuria EXT: No lower leg edema, no paraesthesias MS: No discomfort or change in ROM NEURO: No difficulty with balance, LOC, motor/sensory deficits PSYCH: No anxiety, depression, or situational stress SKIN: No rashes, no concerning lesions Past Family Social History Allergies: Coded Allergies: Penicillin (Verified Allergy, Severe, Hives, 04/06/17) Past Medical History Diabetes type 2 Reported Medications Reported Meds & Active Scripts Active Reported Metformin (Metformin HCl) 500 Mg Tab 500 Mg PO BID With a meal Active Ordered Medications Current Medications Medications (Trade) Dose Ordered Sig/John Route Start Time Stop Time Status Last Admin (NS Flush) 2 ml UNSCH PRN IVF 04/06/17 22:15 (NS Flush) 2 ml UNSCH PRN IV FLUSH 04/07/17 01:15 (NS Flush) 2 ml BID IV FLUSH 04/07/17 01:15 04/07/17 09:36 Family History Noncontributory for early onset cardiovascular disease. Social History Known diabetes. No known diabetes, hyperlipidemia, or personal coronary artery disease. Lifelong nonsmoker. Denies any alcohol or illegal drug use. 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 Past cardiac testing None Physical Exam Vital Signs Vital Signs Date Time Temp Pulse Resp B/P Pulse Ox O2 Delivery O2 Flow Rate FiO2 04/07/17 08:31 98.3 56 16 129/84 96 04/07/17 07:35 95 21 04/07/17 06:58 97 2.00 04/07/17 05:30 97.8 60 18 133/65 97 04/07/17 03:30 98.1 77 18 167/64 97 04/07/17 02:34 16 04/07/17 02:00 67 16 131/81 99 Room Air 04/06/17 22:14 119/77 118/71 04/06/17 22:14 98 Nasal Cannula 2 04/06/17 22:14 98 Nasal Cannula 2 04/06/17 21:58 99.1 83 16 110/63 99 Room Air Physical Exam GENERAL: Alert WN, WD, NAD, pleasant, obese, male HEAD: NC, AT EYES: Sclera clear, conjunctiva without injection, pupils equal and round ENT: Mucous membranes pink and moist NECK: Supple, no masses, trachea midline CV: RRR, without murmur, rub, gallop, no JVD, S1-S2 no S3-S4. No carotid bruits. RESP: Clear lungs throughout bilateral, no crackles, wheeze, rhonchi, symmetrical chest rise, nonlabored, able to speak in full sentences ABD: Soft, NT, ND, no masses, positive bowel tones, obese EXT: Pulses +24, no dependent edema MS: Normal tone 4 extremities, nontender, no obvious deformities, full range of motion NEURO: CN II through CN XII grossly intact, motor strength 5/5, gait WNL PSYCH: A+O 3, pleasant affect, appropriate speech, appropriate mood and affect , insight and judgment SKIN: Normal turgor, normal texture, no lesions, no rashes Laboratory Laboratory Tests Test 04/06/17 04/07/17 04/07/17 22:23 03:00 03:21 White Blood Count 8.4 Red Blood Count 4.07 Hemoglobin 10.2 Hematocrit 30.5 Mean Corpuscular Volume 74.8 Mean Corpuscular Hemoglobin 25.1 Mean Corpuscular Hemoglobin 33.6 Concent Red Cell Distribution Width 17.8 Platelet Count 390 Mean Platelet Volume 8.4 Neutrophils (%) (Auto) 50.0 Lymphocytes (%) (Auto) 42.1 Monocytes (%) (Auto) 4.6 Eosinophils (%) (Auto) 2.2 Basophils (%) (Auto) 1.1 Neutrophils # (Auto) 4.2 Lymphocytes # (Auto) 3.5 Monocytes # (Auto) 0.4 Eosinophils # (Auto) 0.2 Basophils # (Auto) 0.1 CBC Comment AUTO DIFF Differential Total Cells 100 Counted Neutrophils % (Manual) 61 Lymphocytes % 32 Monocytes % 6 Eosinophils % 1 Neutrophils # (Manual) 5.1 Nucleated Red Blood Cells 2 Differential Comment FINAL DIFF MANUAL Platelet Estimate NORMAL Platelet Morphology Comment NORMAL Target Cells 3+ Acanthocytes OCC Prothrombin Time 10.2 Prothromb Time International 0.9 Ratio Activated Partial 24.4 Thromboplast Time Sodium Level 139 Potassium Level 3.9 Chloride Level 107 Carbon Dioxide Level 23.8 Anion Gap 8 Blood Urea Nitrogen 7 Creatinine 0.83 Estimat Glomerular Filtration 123 Rate Random Glucose 185 Calcium Level 8.5 Magnesium Level 1.8 Total Bilirubin 1.2 Aspartate Amino Transf 27 (AST/SGOT) Alanine Aminotransferase 24 (ALT/SGPT) Alkaline Phosphatase 59 Total Creatine Kinase 132 Creatine Kinase MB 0.8 Troponin I LESS THAN 0.02 LESS THAN 0.02 LESS THAN 0.02 Total Protein 7.8 Albumin 3.5 Result Diagram: 04/06/17222204/06/17 2223 Imaging Last Impressions Head CT 04/07/17 0000 Signed Impressions: Service Date/Time: March 13:04 - CONCLUSION: 1. No acute intracranial abnormality. Stable compared to previous. Kristopher Woods MD Chest X-Ray 04/06/172204 Signed Impressions: Service Date/Time: Thursday, April 06, 2017 22:08 - CONCLUSION: No acute disease. Gaston Woods MD FACR Course EKGs Normal sinus rhythm, normal axis, no ST or T-segment changes Assessment and Plan Assessment and Plan #1 Atypical chest painadmitted to chest pain center. Ruled out with serial EKGs and cardiac enzymes. Seen and evaluated by Dr. Antonino Overton. Reassurance provided chest discomfort most likely not related to cardiac. Will proceed with treadmill stress test. Patient agreeable to plan a care #2 Blurred visionCT brain, if unremarkable follow up with PCP. #3 DiabetesSSI low dose, hold metformin. Encouraged daily cardiovascular activity, weight loss, and following a low carbohydrate diet. Atorvastatin 80 mg will be given at discharge for preventative care. Instructed him to make PCP aware of new cholesterol medication and to discuss possibly starting an CARLITOS inhibitor. Instructed on having a baseline eye exam completed. Chetna Schafer Apr 07, 2017 11:39
[2017-04-07] MEDS ORDERED: ACETAMINOPHEN 500 MG CPLT PO PRN (11:45)
[2017-04-07] MEDS ORDERED: NITROGLYCERIN 0.4 MG SL 25 TABS/BTL SL PRN (11:45)
[2017-04-07] MEDS ORDERED: ONDANSETRON HCL 4 MG/2 ML VIAL IV PRN (11:45)
--- NOTE | 2017-04-07 13:18 | RADRPT ---
EXAM DATE/TIME: 04/07/2017 13:04 [facility] COMPARISON: CT BRAIN W/O CONTRAST, November 25, 2016, 2:58. INDICATIONS : Dizziness and blurred vision. RADIATION DOSE: 37.40 CTDIvol (mGy) MEDICAL HISTORY : Diabetes mellitus type 2. SURGICAL HISTORY : None. ENCOUNTER: Initial ACUITY: 1 day PAIN SCALE: 0/10 LOCATION: cranial TECHNIQUE: Multiple contiguous axial images were obtained of the head. Using automated exposure control and adj ustment of the mA and/or kV according to patient size, radiation dose was kept as low as reasonably a chievable to obtain optimal diagnostic quality images. DICOM format image data is available electro nically for review and comparison. FINDINGS: CEREBRUM: The ventricles are normal for age. No evidence of midline shift, mass lesion, hemorrhage or acute in farction. No extra-axial fluid collections are seen. POSTERIOR FOSSA: The cerebellum and brainstem are intact. The 4th ventricle is midline. The cerebellopontine angle i s unremarkable. EXTRACRANIAL: The visualized portion of the orbits is intact. SKULL: The calvaria is intact. No evidence of skull fracture. CONCLUSION: 1. No acute intracranial abnormality. Stable compared to previous. Kristopher Woods MD on April 07, 2017 at 13:12 Board Certified Radiologist. This report was verified electronically.
--- NOTE | 2017-04-07 13:25 | EKG ---
Date Performed: 04/07/2017 Time Performed: 04:54:38 PTAGE: 42 years EKG: SINUS BRADYCARDIA BORDERLINE ECG PREVIOUS TRACING : 04/07/2017 02.58 Since previous tracing, no significant change noted DOCTOR: Antonino Overton Interpretating Date/Time 04/07/2017 13:14:09
--- NOTE | 2017-04-07 13:25 | EKG ---
Date Performed: 04/06/2017 Time Performed: 22:05:20 PTAGE: 42 years EKG: Sinus rhythm BORDERLINE ECG PREVIOUS TRACING : 11/25/2016 02.39 Since previous tracing, no significant change noted DOCTOR: Antonino Overton Interpretating Date/Time 04/07/2017 13:17:21
--- NOTE | 2017-04-07 13:25 | EKG ---
Date Performed: 04/07/2017 Time Performed: 02:58:41 PTAGE: 42 years EKG: Sinus rhythm NORMAL ECG PREVIOUS TRACING : 04/06/2017 22.05 Since previous tracing, no significant change noted DOCTOR: Antonino Overton Interpretating Date/Time 04/07/2017 13:14:57
--- NOTE | 2017-04-07 13:29 | TR ---
Date Performed: 04/07/2017 Time Performed: 10:37:22 DOCTOR: Antonino Overton DRUG LIST: CLINICAL HISTORY: CHEST PAIN REASON FOR TEST: REASON FOR ENDING: OBSERVATION: CONCLUSION: Garcia protocol completed. Stopped sec to reaching target heart rate and leg fatigue. Maximum DC=937 Target HR Achieved=87.0% Maximum PT=526/80 Total Exercise Time=6:10. No reprod chest discomfort. No st t segment changes to sugg ischemia. Fair exercise tolerance. Normal bp response. Re covery quick and unremarkable with freq PVCs. COMMENTS: Patient exercised using the Garcia protocol. No electrocardiographic changes were seen to suggest ischemia. Hemodynamic response to exercise was normal. No significant arrhythmia was prese nt.
[2017-04-07] MEDS ORDERED: ATOR1TAB18 PO (13:40)
--- NOTE | 2017-04-07 13:40 | HHI.DCPOC ---
Discharge Care Plan Diagnosis: (1) Atypical chest pain (2) Type 2 diabetes mellitus (3) Blurred vision, bilateral Goals to Promote Your Health * To prevent worsening of your condition and complications * To maintain your health at the optimal level Directions to Meet Your Goals Take your medications as prescribed Follow your dietary instruction Follow activity as directed Keep your appointments as scheduled Take your immunizations and boosters as scheduled If your symptoms worsen call your PCP, if no PCP go to Urgent Care Center or Emergency Room Smoking is Dangerous to Your Health. Avoid second hand smoke Call the 24-hour hour crisis hotline for domestic abuse at Chetna Schafer [facility] Apr 07, 2017 13:40
[2017-04-08] MEDS ORDERED: ASPIRIN 325 MG TAB PO SCH (09:00)
== END 2017-04-07 15:10 | disposition home or self-care (01) ==
LOC: NEPE 21:56 → NEDA 04-07 00:25 → NEPFCDU 04-07 03:19
PROVIDERS: ADMIT Internal Medicine Cardiovascular Disease; ATTEND Internal Medicine Cardiovascular Disease
DX: R07.89 Other chest pain (principal); H53.8 Other visual disturbances; R51 Headache; R42 Dizziness and giddiness; R05 Cough; R06.02 Shortness of breath; R00.1 Bradycardia, unspecified; E11.9 Type 2 diabetes mellitus without complications; Z79.84 Long term (current) use of oral hypoglycemic drugs
CPT/HCPCS: 70450; 71010; 80053; 82550; 82552; 82948; 83735; 84484; 85007; 85027; 85610; 85730; 93005; 93017; 99285; G0378; J7040

== ENCOUNTER 2017-07-19 21:21 | Emergency (ER) | payer SELFPAY ==
[~2017-07-19 21:21] MED LIST changes: +ATOR1TAB18 PO; -ZOFR4TAB3 SL
[2017-07-19 21:23] VITALS: BP 139/84; PULSE 85; RESP 16; TEMP 98; O2SAT 96
[2017-07-20] MEDS ORDERED: ROBA750T PO (01:13)
[2017-07-20] MEDS ORDERED: DICL75TA PO (01:13)
== END 2017-07-19 22:45 | disposition left against medical advice (07) ==
LOC: NED 21:21
DX: M25.519 Pain in unspecified shoulder (principal); Z53.21 Procedure and treatment not carried out due to patient leaving prior to being seen by health care provider
CPT/HCPCS: 99281

== ENCOUNTER 2017-07-20 00:58 | Emergency (ER) | payer BC ==
[~2017-07-20] VITALS: Ht 182.9 cm; Wt 133.0 kg
[2017-07-20 01:00] VITALS: BP 144/85; PULSE 86; RESP 16; TEMP 97.9; O2SAT 96
[2017-07-20] MEDS ORDERED: DICL75TA PO (01:13)
[2017-07-20] MEDS ORDERED: ROBA750T PO (01:13)
[2017-07-20] MEDS ORDERED: NAPROXEN 500 MG TAB PO ONE (01:15)
[2017-07-20] MEDS ORDERED: CYCLOBENZAPRINE HCL 10 MG TAB PO ONE (01:15)
--- NOTE | 2017-07-20 01:25 | PD ---
HPI Chief Complaint: Pain: Acute or Chronic Time Seen by Provider: 01:09 Travel History International Travel<30 days: No Contact w/Intl Traveler<30days: No Traveled to known affect area: No History of Present Illness HPI 42-year-old black male presents emergency Department with complains of left upper shoulder pain for the past 3-4 weeks. He states the pain radiates up into his neck and into his shoulder. He does not recall any trauma. He states that he is unsure whether this had started after sleeping wrong. He denies any history of neck or back problems in the past. He has not seen his doctor regarding this pain yet. He is taking [id number] medications without relief. Pain is moderate. Worse with movement of the neck and shoulder. Some relief with remaining still. No recent illness. No cold symptoms. PFSH Past Medical History Cardiovascular Problems: Yes (HEART MURMUR) Diabetes: Yes Patient Takes Glucophage: Yes Diminished Hearing: No Medical other: Yes (BELLS PALSY) Past Surgical History Appendectomy: Yes Cholecystectomy: Yes Social History Alcohol Use: No Tobacco Use: No Substance Use: No Allergies-Medications (Allergen,Severity, Reaction): Coded Allergies: penicillin G (Unverified Allergy, Severe, Hives, 07/20/17) Reported Meds & Prescriptions Reported Meds & Active Scripts Active Robaxin (Methocarbamol) 750 Mg Tab 1,500 Mg PO TID [address] (Diclofenac Sodium) 75 Mg Tabdr 75 Mg PO BID Reported Metformin (Metformin HCl) 500 Mg Tab 500 Mg PO BID With a meal Review of Systems General / Constitutional: No: Fever Eyes: No: Visual changes HENT: Positive: Neck Stiffness, Neck Pain, No: Headaches Cardiovascular: No: Chest Pain or Discomfort Respiratory: No: Shortness of Breath Gastrointestinal: No: Nausea, Vomiting, Abdominal Pain Genitourinary: No: Dysuria Musculoskeletal: Positive: Myalgias, Cramping, Pain, No: Arthralgias, Limited ROM, Edema Skin: No Rash Neurologic: No: Weakness Psychiatric: No: Depression Endocrine: No: Polydipsia Hematologic/Lymphatic: No: Easy Bruising Physical Exam Narrative GENERAL: Well-developed, well-nourished in no apparent distress. Nontoxic appearing. HEAD: Normocephalic, atraumatic. EYES: Pupils equal round and reactive. Extraocular motions intact. No scleral icterus. No injection or drainage. ENT: Nose clear. Throat without erythema, tonsillar hypertrophy or exudate. Uvula midline. Airway patent. NECK: Trachea midline. Supple, left paracervical muscle tenderness from the mastoid insertion down into the trapezius and periscapular region on the left. Mild spasm., moves head freely. No central bony tenderness. CARDIOVASCULAR: Regular rate and rhythm without murmurs, gallops, or rubs. RESPIRATORY: Clear to auscultation. Breath sounds equal bilaterally. No wheezes , rales, or rhonchi. GASTROINTESTINAL: Abdomen soft, non-tender, nondistended. No hepato-splenomegaly , or palpable masses. No guarding. EXTREMITIES: No clubbing, cyanosis, or edema. No joint tenderness. BACK: Nontender without deformity. No flank tenderness. NEUROLOGICAL: Awake, alert and oriented x 3 .Cranial nerves grossly intact. Motor and sensory grossly within normal limits. Normal speech. Data Data Last Documented VS Vital Signs Date Time Temp Pulse Resp B/P (MAP) Pulse Ox O2 Delivery O2 Flow Rate FiO2 07/20/17 01:00 97.9 86 16 144/85 (104) 96 Room Air Orders Orders Naproxen (Naprosyn) (07/20/17 01:15) Cyclobenzaprine (Flexeril) (07/20/17 01:15) Ed Discharge Order (07/20/17 01:14) [facility] Medical Decision Making Medical Screen Exam Complete: Yes Emergency Medical Condition: Yes Medical Record Reviewed: Yes Differential Diagnosis MDM: High Differential diagnoses: AAA,Fracture, sprain, strain, HNP, nerve or vascular injury, epidural abscess, pilonidal cyst, pyelonephritis, UTI, nephrolithiasis, ureterolithiasis Narrative Course Patient's given Naprosyn 500 and Flexeril 10 mg by mouth. This is back pain Diagnosis Primary Impression: back pain Patient Instructions: General Instructions Additional Instructions: Rest. Ice or heat whichever improved your symptoms the best. Consider massage therapy. Range of motion and stretching exercises. Incinerator joining a gym to promote a strong neck and back. Robaxin and Voltaren. Follow-up with a primary care doctor in one week. Return to the ER for emergencies. Med/Other Pt SpecificInfo: Prescription(s) given Scripts Methocarbamol (Robaxin) 750 Mg Tab 1500 MG PO TID for Muscle Spasm for 10 Days, TAB 0 Refills Prov: Aparna Aguiar MD 07/20/[address] (Diclofenac Sodium DR) 75 Mg Tabdr 75 MG PO BID, #20 TAB 0 Refills Prov: Aparna Aguiar MD 07/20/17 Disposition: 01 DISCHARGE HOME Condition: Stable Joe Urrutia Jul 20, 2017 01:25
== END 2017-07-20 01:51 | disposition home or self-care (01) ==
LOC: NEPD 00:58
DX: M54.9 Dorsalgia, unspecified (principal); R01.1 Cardiac murmur, unspecified; E11.9 Type 2 diabetes mellitus without complications; Z88.0 Allergy status to penicillin; Z79.899 Other long term (current) drug therapy
CPT/HCPCS: 99283

== ENCOUNTER 2017-08-20 18:58 | Emergency (ER) | payer BC ==
[~2017-08-20] VITALS: Ht 182.9 cm; Wt 130.0 kg
[~2017-08-20 18:58] MED LIST changes: -ATOR1TAB18 PO; +DICL75TA PO; +ROBA750T PO
[2017-08-20 19:03] VITALS: BP 133/91; PULSE 100; RESP 16; TEMP 97.5; O2SAT 97
[2017-08-20] MEDS ORDERED: SODIUM CHLOR 0.9% 1000 ML INJ 1,000 ML IV SCH (19:32)
[2017-08-20 19:39] VITALS: BP 129/74; PULSE 90; RESP 16; O2SAT 96
[2017-08-20] MEDS ORDERED: FAMOTIDINE 20 MG/2 ML VIAL IV PUSH ONE (19:45)
[2017-08-20] MEDS ORDERED: SODIUM CHLORIDE 0.9% FLUSH 10 ML FLUSH IV FLUSH PRN (19:45)
[2017-08-20] MEDS ORDERED: ONDANSETRON HCL 4 MG/2 ML VIAL IVP ONE (19:45)
[2017-08-20 20:01] LABS: BLOOD, URINE NEG (NEG); COMMENT (UR) CULT NOT INDICATED; CULTURE IF INDICATED CULT NOT INDICATED; GLUCOSE,URINE NEG (NEG); KETONE, URINE NEG (NEG); MUCUS URINE FEW /lpf (OCC); NITRITE,URINE NEG (NEG); SQUAMOUS EPITHELIAL CELL URINE <1 /hpf (0-5); URINE COLOR YELLOW (YELLW/STRAW)
--- NOTE | 2017-08-20 20:17 | PD ---
HPI Chief Complaint: GI Complaint Time Seen by Provider: 19:24 Travel History International Travel<30 days: No Contact w/Intl Traveler<30days: No Traveled to known affect area: No History of Present Illness HPI Patient is a 42 year old male who comes in complaining of nausea, vomiting, diarrhea. He says it started this morning at 9AM. He says he has vomited 3 times and had multiple episodes of diarrhea. He denies any blood in his stool or vomit. He says the last thing he ate was some chicken at [employer]. He says he has not been able to drink or eat anything today. He says he feels cramping in his abdomen, but has not really had any pain. He denies fever or chills. He denies any urinary symptoms. PFSH Past Medical History Cardiovascular Problems: Yes (HEART MURMUR) Diabetes: Yes Patient Takes Glucophage: Yes (08/20/17 0700) Diminished Hearing: No Past Surgical History Appendectomy: Yes Cholecystectomy: Yes Social History Alcohol Use: Yes (OCC) Tobacco Use: No Substance Use: No Allergies-Medications (Allergen,Severity, Reaction): Coded Allergies: penicillin G (Unverified Allergy, Severe, Hives, 08/20/17) Reported Meds & Prescriptions Reported Meds & Active Scripts Active Reported Metformin (Metformin HCl) 500 Mg Tab 500 Mg PO BID With a meal Review of Systems Except as stated in HPI: all other systems reviewed are Neg General / Constitutional: No: Fever, Chills HENT: No: Headaches, Lightheadedness Cardiovascular: No: Chest Pain or Discomfort Respiratory: No: Shortness of Breath Gastrointestinal: Positive: Nausea, Vomiting, Diarrhea Genitourinary: No: Dysuria Musculoskeletal: No: Myalgias, Pain Skin: No Rash, No Itching, No Change in Pigmentation Neurologic: No: Weakness, Dizziness Physical Exam Narrative GENERAL: Awake and alert, in no acute distress. SKIN: Focused skin assessment warm/dry. HEAD: Atraumatic. Normocephalic. EYES: Pupils equal and round. No scleral icterus. ENT: Mucous membranes pink and moist. NECK: Trachea midline. No JVD. CARDIOVASCULAR: Regular rate and rhythm. No murmur appreciated. RESPIRATORY: No accessory muscle use. Clear to auscultation. Breath sounds equal bilaterally. GASTROINTESTINAL: Abdomen soft, non-tender, nondistended. MUSCULOSKELETAL: No obvious deformities. No clubbing. No cyanosis. No edema. NEUROLOGICAL: Awake and alert. No obvious cranial nerve deficits. Motor grossly within normal limits. Normal speech. PSYCHIATRIC: Appropriate mood and affect; insight and judgment normal. Data Data Last Documented VS Vital Signs Date Time Temp Pulse Resp B/P (MAP) Pulse Ox O2 Delivery O2 Flow Rate FiO2 08/20/17 19:39 90 16 129/74 (92) 96 Room Air 08/20/17 19:03 97.5 Orders Orders Complete Blood Count With Diff (08/20/17 19:32) Comprehensive Metabolic Panel (08/20/17 19:32) Lipase (08/20/17 19:32) Urinalysis - C+S If Indicated (08/20/17 19:32) Iv Access Insert/Monitor (08/20/17 19:32) Ecg Monitoring (08/20/17 19:32) Oximetry (08/20/17 19:32) Ondansetron Inj (Zofran Inj) (08/20/17 19:45) Sodium Chlor 0.9% 1000 Ml Inj (Ns 1000 M (08/20/17 19:32) Sodium Chloride 0.9% Flush (Ns Flush) (08/20/17 19:45) Famotidine Inj (Pepcid Inj) (08/20/17 19:45) Labs Laboratory Tests Test 08/20/17 19:46 08/20/17 19:50 White Blood Count 12.6 TH/MM3 Red Blood Count 4.49 MIL/MM3 Hemoglobin 11.6 GM/DL Hematocrit 35.2 % Mean Corpuscular Volume 78.3 FL Mean Corpuscular Hemoglobin 25.9 PG Mean Corpuscular Hemoglobin Concent 33.1 % Red Cell Distribution Width 16.7 % Platelet Count 328 TH/MM3 Mean Platelet Volume 8.4 FL Neutrophils (%) (Auto) 63.2 % Lymphocytes (%) (Auto) 28.9 % Monocytes (%) (Auto) 6.2 % Eosinophils (%) (Auto) 1.0 % Basophils (%) (Auto) 0.7 % Neutrophils # (Auto) 8.0 TH/MM3 Lymphocytes # (Auto) 3.6 TH/MM3 Monocytes # (Auto) 0.8 TH/MM3 Eosinophils # (Auto) 0.1 TH/MM3 Basophils # (Auto) 0.1 TH/MM3 CBC Comment DIFF FINAL Differential Comment Blood Urea Nitrogen 8 MG/DL Creatinine 0.76 MG/DL Random Glucose 191 MG/DL Total Protein 8.3 GM/DL Albumin 3.8 GM/DL Calcium Level 8.4 MG/DL Alkaline Phosphatase 67 U/L Aspartate Amino Transf (AST/SGOT) 21 U/L Alanine Aminotransferase (ALT/SGPT) 25 U/L Total Bilirubin 1.5 MG/DL Sodium Level 138 MEQ/L Potassium Level 4.0 MEQ/L Chloride Level 106 MEQ/L Carbon Dioxide Level 22.5 MEQ/L Anion Gap 10 MEQ/L Estimat Glomerular Filtration Rate 136 ML/MIN Lipase 99 U/L Urine Color YELLOW Urine Turbidity CLEAR Urine pH 5.0 Urine Specific [place] 1.010 Urine Protein NEG mg/dL Urine Glucose (UA) NEG mg/dL Urine Ketones NEG mg/dL Urine Occult Blood NEG Urine Nitrite NEG Urine Bilirubin NEG Urine Urobilinogen LESS THAN 2.0 MG/DL Urine Leukocyte Esterase NEG Urine WBC 1 /hpf Urine Squamous Epithelial Cells <1 /hpf Urine Mucus FEW /lpf Microscopic Urinalysis Comment CULT NOT INDICATED MDM Medical Decision Making Medical Screen Exam Complete: Yes Emergency Medical Condition: Yes Differential Diagnosis gastroenteritis vs colitis vs electrolyte abnormalities Narrative Course Patient is a 42 year old male who comes in complaining of nausea, vomiting, diarrhea. Exam shows no tenderness to palpation of the abdomen. IV established , labs sent. Labs show no acute abnormalities. Given IVF, Zofran, Famotidine. Patient reports feeling better. He drank Evi Anais without vomiting. Advised to drink plenty of fluids. Advised to eat a bland diet. Advised follow -up with her primary care doctor. Advised to return to ED as needed for any worsening symptoms. Diagnosis Primary Impression: Nausea & vomiting Qualified Codes: R11.2 - Nausea with vomiting, unspecified Patient Instructions: Acute Nausea and Vomiting (ED), General Instructions Additional Instructions: Drink plenty of fluids. Eat a bland diet. Follow-up with a primary care doctor. Return to the ED as needed for any worsening symptoms. Disposition: 01 DISCHARGE HOME Condition: Stable Christine Hickey MD Aug 20, 2017 20:17
[2017-08-20 20:22] LABS: ANION GAP 10 MEQ/L (5-15); AST (GOT) 21 U/L (15-37); BICARBONATE 22.5 MEQ/L (21.0-32.0); BLOOD UREA NITROGEN 8 MG/DL (7-18); CHLORIDE 106 MEQ/L (98-107); GLOMERULAR FILTRATION RATE 136 ML/MIN (>89); SODIUM (NA) 138 MEQ/L (136-145)
[2017-08-20 20:23] LABS: ALT (GPT) 25 U/L (12-78); BASOPHIL # 0.1 TH/MM3 (0-0.2); BASOPHIL % 0.7 % (0.0-2.0); EOSINOPHIL # 0.1 TH/MM3 (0-0.4); HEMATOCRIT 35.2 % (39.0-51.0); HEMO FLAGS DIFF FINAL; LYMPH % 28.9 % (9.0-44.0); LYMPHOCYTE # 3.6 TH/MM3 (1.0-4.8); MEAN CELL VOLUME 78.3 FL (80.0-100.0); MEAN CORPUSCULAR HEMOGLOBIN 25.9 PG (27.0-34.0); MEAN CORPUSCULAR HGB CONC 33.1 % (32.0-36.0); MONO % 6.2 % (0.0-8.0); NEUT % 63.2 % (16.0-70.0); PLATELET COUNT 328 TH/MM3 (150-450); RED BLOOD COUNT 4.49 MIL/MM3 (4.50-5.90); RED CELL DISTRIBUTION WIDTH 16.7 % (11.6-17.2); WHITE BLOOD COUNT 12.6 TH/MM3 (4.0-11.0)
[2017-08-20 20:25] LABS: ALKALINE PHOSPHATASE 67 U/L (45-117); TOTAL BILIRUBIN ADULT 1.5 MG/DL (0.2-1.0)
[2017-08-20 21:37] VITALS: BP 133/76
== END 2017-08-20 21:57 | disposition home or self-care (01) ==
LOC: NEPC 18:58
DX: R11.2 Nausea with vomiting, unspecified (principal); R19.7 Diarrhea, unspecified; E11.9 Type 2 diabetes mellitus without complications; R01.1 Cardiac murmur, unspecified; Z88.0 Allergy status to penicillin; Z79.899 Other long term (current) drug therapy
CPT/HCPCS: 80053; 81001; 83690; 85025; 96361; 96374; 96375; 99284; J2405; J7030

== ENCOUNTER 2018-01-06 14:51 | Emergency (ER) | payer BC ==
[~2018-01-06] VITALS: Ht 182.9 cm; Wt 128.0 kg
[~2018-01-06 14:51] MED LIST changes: -DICL75TA PO; -ROBA750T PO
[2018-01-06 14:54] VITALS: BP 161/66; PULSE 56; RESP 18; TEMP 99.7; O2SAT 100
[2018-01-06] MEDS ORDERED: SODIUM CHLOR 0.9% 1000 ML INJ 1,000 ML IV SCH (15:39)
[2018-01-06] MEDS ORDERED: KETOROLAC TROMETHAMINE 30 MG/ML (IVP) VIAL IVP ONE (15:45)
[2018-01-06] MEDS ORDERED: ONDANSETRON HCL 4 MG/2 ML VIAL IVP ONE (15:45)
[2018-01-06] MEDS ORDERED: FAMOTIDINE 20 MG/2 ML VIAL IV PUSH ONE (15:45)
[2018-01-06] MEDS ORDERED: SODIUM CHLORIDE 0.9% FLUSH 10 ML FLUSH IV FLUSH PRN (15:45)
[2018-01-06 16:40] VITALS: O2SAT 99
[2018-01-06 16:47] LABS: AUTOMATED NEUTROPHIL # 13.3 TH/MM3 (1.8-7.7); BASOPHIL # 0.1 TH/MM3 (0-0.2); BASOPHIL % 0.7 % (0.0-2.0); EOSINOPHIL # 0.3 TH/MM3 (0-0.4); HEMATOCRIT 33.5 % (39.0-51.0); HEMOGLOBIN 11.2 GM/DL (13.0-17.0); LYMPH % 16.7 % (9.0-44.0); LYMPHOCYTE # 2.9 TH/MM3 (1.0-4.8); MEAN CELL VOLUME 74.6 FL (80.0-100.0); MEAN CORPUSCULAR HEMOGLOBIN 24.9 PG (27.0-34.0); MEAN CORPUSCULAR HGB CONC 33.4 % (32.0-36.0); MEAN PLATELET VOLUME 8.8 FL (7.0-11.0); MONO % 4.2 % (0.0-8.0); MONOCYTE # 0.7 TH/MM3 (0-0.9); NEUT % 76.4 % (16.0-70.0); PLATELET COUNT 359 TH/MM3 (150-450); RED BLOOD COUNT 4.49 MIL/MM3 (4.50-5.90); RED CELL DISTRIBUTION WIDTH 17.3 % (11.6-17.2); WHITE BLOOD COUNT 17.4 TH/MM3 (4.0-11.0)
--- NOTE | 2018-01-06 16:53 | RADRPT ---
EXAM DATE/TIME: 01/06/2018 15:50 [place] COMPARISON: No previous studies available for comparison. INDICATIONS : Patient complains of nausea, vomiting, and abdomen pain. MEDICAL HISTORY : None. SURGICAL HISTORY : Appendectomy. Cholecystectomy. ENCOUNTER: Initial ACUITY: 4 - 6 days PAIN SCORE: 5/10 LOCATION: Abdomen FINDINGS: Supine and upright views of the abdomen were performed. The abdominal bowel gas pattern is normal. No air fluid levels are seen. No abnormal masses, calcifications, or organomegaly is seen. The visu alized lower lungs are clear. No evidence of free intraperitoneal gas. Degenerative changes are note d throughout the lumbar spine and bilateral hips. Status post cholecystectomy and appendectomy. CONCLUSION: No acute disease. Ambrosio Carpio MD on January 06, 2018 at 16:49 Board Certified Radiologist. This report was verified electronically.
[2018-01-06] MEDS ORDERED: ONDA4TAB7 SL (16:55)
[2018-01-06] MEDS ORDERED: LOPE2CAP PO (16:55)
[2018-01-06] MEDS ORDERED: DICY10 PO (16:55)
--- NOTE | 2018-01-06 16:56 | PD ---
Data Data Last Documented VS Vital Signs Date Time Temp Pulse Resp B/P (MAP) Pulse Ox O2 Delivery O2 Flow Rate FiO2 01/06/18 16:40 18 01/06/18 16:40 99 Room Air 01/06/18 14:54 99.7 56 161/66 (97) Orders Orders Complete Blood Count With Diff (01/06/18 15:39) Comprehensive Metabolic Panel (01/06/18 15:39) Lipase (01/06/18 15:39) Prothrombin Time / Inr (Pt) (01/06/18 15:39) Act Partial Throm Time (Ptt) (01/06/18 15:39) Urinalysis - C+S If Indicated (01/06/18 15:39) Abdomen, Flat & Upright (01/06/18 ) Iv Access Insert/Monitor (01/06/18 15:39) Ecg Monitoring (01/06/18 15:39) Oximetry (01/06/18 15:39) Ondansetron Inj (Zofran Inj) (01/06/18 15:45) Sodium Chlor 0.9% 1000 Ml Inj (Ns 1000 M (01/06/18 15:39) Sodium Chloride 0.9% Flush (Ns Flush) (01/06/18 15:45) Famotidine Inj (Pepcid Inj) (01/06/18 15:45) Ketorolac Inj (Toradol Inj) (01/06/18 15:45) Influenzae A/B Antigen (01/06/18 15:39) Labs Laboratory Tests Test 01/06/18 16:15 White Blood Count 17.4 TH/MM3 Red Blood Count 4.49 MIL/MM3 Hemoglobin 11.2 GM/DL Hematocrit 33.5 % Mean Corpuscular Volume 74.6 FL Mean Corpuscular Hemoglobin 24.9 PG Mean Corpuscular Hemoglobin Concent 33.4 % Red Cell Distribution Width 17.3 % Platelet Count 359 TH/MM3 Mean Platelet Volume 8.8 FL Neutrophils (%) (Auto) 76.4 % Lymphocytes (%) (Auto) 16.7 % Monocytes (%) (Auto) 4.2 % Eosinophils (%) (Auto) 2.0 % Basophils (%) (Auto) 0.7 % Neutrophils # (Auto) 13.3 TH/MM3 Lymphocytes # (Auto) 2.9 TH/MM3 Monocytes # (Auto) 0.7 TH/MM3 Eosinophils # (Auto) 0.3 TH/MM3 Basophils # (Auto) 0.1 TH/MM3 CBC Comment DIFF FINAL Differential Comment [facility] Supervised Visit with EUGENIA: Yes Interpretation(s) CBC remarkable for mild leukocytosis. Abdominal x-ray, grossly unremarkable. A couple air-fluid levels. A little bit of enteritis probably. Narrative Course The history, exam, and medical decision-making in the associated mid-level provider note were completed with my assistance. I reviewed and agree with the findings presented. I attest that I had a [id number] encounter with the patient on the same day, and personally performed and documented my assessment and findings in the medical record. *My assessment and Findings: 42-year-old man presents to the emergency department with abdominal pain nausea vomiting diarrhea in the setting of URI symptoms and sick contacts with the same. He looks well. Benign abdominal exam. A little bit of leukocytosis. Recommend supportive treatment. Diagnosis Primary Impression: Acute gastroenteritis Patient Instructions: General Instructions Additional Instruction: The Zofran if needed for nausea or vomiting. Take Bentyl if needed for abdominal cramping. Drink plenty fluids stay well-hydrated. Return to the emergency department for any new or worsening symptoms. Med/Other Pt SpecificInfo: Prescription(s) given Scripts Loperamide (Loperamide) 2 Mg Cap 2 MG PO DIRECTED Y for DIARRHEA, #8 CAP 0 Refills One capsule after each loose stool. Not to exceed 8 capsules per day. Prov: Jeremiah Brown MD 01/06/18 Dicyclomine (Bentyl) 10 Mg Cap 10 MG PO TID Y for Bowel Management, #12 CAP 0 Refills Prov: Jeremiah Brown MD 01/06/18 Ondansetron Odt (Ondansetron Odt) 4 Mg Tab 4 MG SL Q6HR Y for Nausea/Vomiting, #12 TAB 0 Refills Prov: Jeremiah Brown MD 01/06/18 Disposition: 01 DISCHARGE HOME Condition: Stable Jeremiah Brown MD Jan 06, 2018 16:56
[2018-01-06 16:58] VITALS: RESP 18
[2018-01-06 17:00] LABS: PROTHROMBIN TIME - PATIENT 10.3 SEC (9.8-11.6)
[2018-01-06 17:19] LABS: ALBUMIN 3.7 GM/DL (3.4-5.0); ALT (GPT) 28 U/L (12-78); AST (GOT) 31 U/L (15-37); BICARBONATE 26.3 MEQ/L (21.0-32.0); BLOOD UREA NITROGEN 11 MG/DL (7-18); CALCIUM 8.5 MG/DL (8.5-10.1); CHLORIDE 112 MEQ/L (98-107); GLOMERULAR FILTRATION RATE 112 ML/MIN (>89); GLUCOSE,RANDOM 133 MG/DL (74-106); SODIUM (NA) 142 MEQ/L (136-145)
[2018-01-06 17:20] LABS: ALKALINE PHOSPHATASE 57 U/L (45-117); TOTAL BILIRUBIN ADULT 1.9 MG/DL (0.2-1.0); TOTAL PROTEIN 8.4 GM/DL (6.4-8.2)
--- NOTE | 2018-01-06 17:29 | PD ---
HPI Chief Complaint: GI Complaint Time Seen by Provider: 15:36 Travel History International Travel<30 days: No Contact w/Intl Traveler<30days: No Traveled to known affect area: No History of Present Illness HPI 42-year-old -Spanish male presents emergency department with 3 day history of nausea, vomiting, and diarrhea. Patient has felt "hot", but denies taking his fever. Patient has been drinking lots of soup, which seems to come right back up. He denies decreased urinary output. He denies dysuria. He denies flank pain. Patient denies heartburn. No chest pain or shortness of breath. Upper respiratory symptoms include congestion, headache, and mild sore throat. He is allergic to penicillin. PFSH Past Medical History Cardiovascular Problems: Yes (HEART MURMUR) Diabetes: Yes Diminished Hearing: No Past Surgical History Appendectomy: Yes Cholecystectomy: Yes Social History Alcohol Use: Yes (OCC) Tobacco Use: No Substance Use: No Allergies-Medications (Allergen,Severity, Reaction): Coded Allergies: penicillin G (Unverified Allergy, Severe, Hives, 08/20/17) Reported Meds & Prescriptions Reported Meds & Active Scripts Active Loperamide (Loperamide HCl) 2 Mg Cap 2 Mg PO DIRECTED PRN One capsule after each loose stool. Not to exceed 8 capsules per day. Bentyl (Dicyclomine HCl) 10 Mg Cap 10 Mg PO TID PRN Ondansetron Odt 4 Mg Tab 4 Mg SL Q6HR PRN Reported Metformin (Metformin HCl) 500 Mg Tab 500 Mg PO BID With a meal Review of Systems Except as stated in HPI: all other systems reviewed are Neg General / Constitutional: Positive: Fever, Chills (Subject) Eyes: No: Visual changes HENT: Positive: Headaches, Lightheadedness, Sore Throat, Rhinitis, Rhinorrhea, Congestion, No: Vertigo, Nosebleed, Neck Stiffness, Neck Pain, Dental Difficulties, Earache Cardiovascular: No: Chest Pain or Discomfort Respiratory: No: Cough, Shortness of Breath, Wheezing Gastrointestinal: Positive: Nausea, Vomiting, Diarrhea, Abdominal Pain, Loss of Appetite Genitourinary: No: Urgency, Frequency, Dysuria, Decreased Urinary Output Musculoskeletal: No: Pain Skin: No Rash Neurologic: No: Weakness Psychiatric: No: Depression Endocrine: No: Polydipsia Hematologic/Lymphatic: No: Easy Bruising Physical Exam Narrative GENERAL: Patient appears ill but not septic SKIN: Warm and dry. Decreased pallor. Somewhat decreased turgor. No diaphoresis per HEAD: Atraumatic. Normocephalic. EYES: Pupils equal and round. No scleral icterus. No injection or drainage. ENT: No nasal bleeding or discharge. Mucous membranes pink and moist. Pharynx is clear. Airways patent NECK: Trachea midline. Supple and nontender CARDIOVASCULAR: Regular rate and rhythm. RESPIRATORY: No accessory muscle use. Clear to auscultation. Breath sounds equal bilaterally. GASTROINTESTINAL: Abdomen soft, mild to moderate diffuse tenderness, nondistended. No point tenderness or rebound. No CVA tenderness. Hepatic and splenic margins not palpable. MUSCULOSKELETAL: Extremities without clubbing, cyanosis, or edema. No obvious deformities. NEUROLOGICAL: Awake and alert. No obvious cranial nerve deficits. Motor grossly within normal limits. Five out of 5 muscle strength in the arms and legs. Normal speech. PSYCHIATRIC: Appropriate mood and affect; insight and judgment normal. Data Data Last Documented VS Vital Signs Date Time Temp Pulse Resp B/P (MAP) Pulse Ox O2 Delivery O2 Flow Rate FiO2 01/06/18 16:58 18 01/06/18 16:40 99 Room Air 01/06/18 14:54 99.7 56 161/66 (97) Orders Orders Complete Blood Count With Diff (01/06/18 15:39) Comprehensive Metabolic Panel (01/06/18 15:39) Lipase (01/06/18 15:39) Prothrombin Time / Inr (Pt) (01/06/18 15:39) Act Partial Throm Time (Ptt) (01/06/18 15:39) Abdomen, Flat & Upright (01/06/18 ) Iv Access Insert/Monitor (01/06/18 15:39) Ecg Monitoring (01/06/18 15:39) Oximetry (01/06/18 15:39) Ondansetron Inj (Zofran Inj) (01/06/18 15:45) Sodium Chlor 0.9% 1000 Ml Inj (Ns 1000 M (01/06/18 15:39) Sodium Chloride 0.9% Flush (Ns Flush) (01/06/18 15:45) Famotidine Inj (Pepcid Inj) (01/06/18 15:45) Ketorolac Inj (Toradol Inj) (01/06/18 15:45) Influenzae A/B Antigen (01/06/18 15:39) Ed Discharge Order (01/06/18 17:29) Labs Laboratory Tests Test 01/06/18 16:15 White Blood Count 17.4 TH/MM3 Red Blood Count 4.49 MIL/MM3 Hemoglobin 11.2 GM/DL Hematocrit 33.5 % Mean Corpuscular Volume 74.6 FL Mean Corpuscular Hemoglobin 24.9 PG Mean Corpuscular Hemoglobin Concent 33.4 % Red Cell Distribution Width 17.3 % Platelet Count 359 TH/MM3 Mean Platelet Volume 8.8 FL Neutrophils (%) (Auto) 76.4 % Lymphocytes (%) (Auto) 16.7 % Monocytes (%) (Auto) 4.2 % Eosinophils (%) (Auto) 2.0 % Basophils (%) (Auto) 0.7 % Neutrophils # (Auto) 13.3 TH/MM3 Lymphocytes # (Auto) 2.9 TH/MM3 Monocytes # (Auto) 0.7 TH/MM3 Eosinophils # (Auto) 0.3 TH/MM3 Basophils # (Auto) 0.1 TH/MM3 CBC Comment DIFF FINAL Differential Comment Prothrombin Time 10.3 SEC Prothromb Time International Ratio 1.0 RATIO Activated Partial Thromboplast Time 25.4 SEC Blood Urea Nitrogen 11 MG/DL Creatinine 0.90 MG/DL Random Glucose 133 MG/DL Total Protein 8.4 GM/DL Albumin 3.7 GM/DL Calcium Level 8.5 MG/DL Alkaline Phosphatase 57 U/L Aspartate Amino Transf (AST/SGOT) 31 U/L Alanine Aminotransferase (ALT/SGPT) 28 U/L Total Bilirubin 1.9 MG/DL Sodium Level 142 MEQ/L Potassium Level 4.1 MEQ/L Chloride Level 112 MEQ/L Carbon Dioxide Level 26.3 MEQ/L Anion Gap 4 MEQ/L Estimat Glomerular Filtration Rate 112 ML/MIN Lipase 108 U/L MDM Medical Decision Making Medical Screen Exam Complete: Yes Emergency Medical Condition: Yes Differential Diagnosis Acute nausea and vomiting. Diarrhea. Gastroenteritis. Viral syndrome. Narrative Course Patient is medically stable at time of exam. Labs ordered including CBC, CMP, lipase. IV access is obtained and the patient is given 4 mg Zofran IV, 20 mg famotidine IV, and ketorolac 30 mg IV. Patient is given 2 L normal saline bolus. KUB and upright x-ray is ordered. Labs show leukocytosis of 17.4, microcytic anemia is noted with a hemoglobin 11.2, and a hematocrit of 33.5. Coagulation studies are normal. Chemistries show a chloride of 112, anion gap of 4, random glucose 133, bilirubin slightly elevated 1.9, total protein is 8.4. X-rays unremarkable per the radiologist Patient felt improved after the above treatment plan. Patient discharged home with loperamide 2 mg as directed #8 Dicyclomine 10 mg 1 3 times daily as needed #12 Zofran 4 mg every 6 hours as needed #12. Patient is to rest, push fluids, and follow-up if symptoms do not improve or worsen as needed. Diagnosis Primary Impression: Acute gastroenteritis Patient Instructions: Acute Diarrhea (ED), Acute Nausea and Vomiting (ED), General Instructions Additional Instructions: The Zofran if needed for nausea or vomiting. Take Bentyl if needed for abdominal cramping. Drink plenty fluids stay well-hydrated. Return to the emergency department for any new or worsening symptoms. Med/Other Pt SpecificInfo: Prescription(s) given Scripts Loperamide (Loperamide) 2 Mg Cap 2 MG PO DIRECTED Y for DIARRHEA, #8 CAP 0 Refills One capsule after each loose stool. Not to exceed 8 capsules per day. Prov: Jeremiah Brown MD 01/06/18 Dicyclomine (Bentyl) 10 Mg Cap 10 MG PO TID Y for Bowel Management, #12 CAP 0 Refills Prov: Jeremiah Brown MD 01/06/18 Ondansetron Odt (Ondansetron Odt) 4 Mg Tab 4 MG SL Q6HR Y for Nausea/Vomiting, #12 TAB 0 Refills Prov: Jeremiah Brown MD 01/06/18 Disposition: 01 DISCHARGE HOME Condition: Stable Ehsan Hernandez Jan 06, 2018 17:29
== END 2018-01-06 17:58 | disposition home or self-care (01) ==
LOC: NEPD 14:51
DX: K52.9 Noninfective gastroenteritis and colitis, unspecified (principal); R01.1 Cardiac murmur, unspecified; E11.9 Type 2 diabetes mellitus without complications; Z79.84 Long term (current) use of oral hypoglycemic drugs
CPT/HCPCS: 74019; 80053; 83690; 85025; 85610; 85730; 87804; 96374; 96375; 99284; J1885; J2405; J7030